=== PATIENT | female | born 1945 ===

== ENCOUNTER 2017-02-09 16:49 | Inpatient (IN) | payer MEDICARE, BC ==
[2017-02-09 17:01] VITALS: BMI 31.1
[2017-02-09] MEDS ORDERED: Sodium Chloride 0.9% 1,000 ML IV STA (17:18)
--- NOTE | 2017-02-09 17:24 | ED PDOC ---
Arrival/HPI - General Time Seen by Provider: 02/09/17 16:57 Historian: Patient - History of Present Illness Narrative History of Present Illness (Text): 02/09/17 17:09 A 72 year old female, whose past medical history includes cholecystectomy and brain tumor, presents to the emergency department complaining of intermittent chest pain since yesterday afternoon. Patient reports her pain last 10-15 minutes at a time and radiates to her abdomen. She states her pain is worse when taking deep breaths. Patient took Advil, with mild relief. She also reports intermittent left lower abdominal pain for the past month, which she is being seen for by her PMD. Patient notes decrease appetite but denies any fever , chills, nausea, vomiting, diarrhea, shortness of breath, cough, weakness, diaphoresis, rash or any other complaints. PMD: Dr. Carcamo Time/Duration: Other (Yesterday afternoon) Symptom Course: Unchanged, Intermittent Quality: Other Context: Home Past Medical History - Provider Review Nursing Documentation Reviewed: Yes - Infectious Disease Hx of Infectious Diseases: None - Cardiac Hx Cardiac Disorders: No - Pulmonary Hx Respiratory Disorders: No - Neurological Hx Neurological Disorder: Yes - HEENT Hx HEENT Disorder: No - Renal Hx Renal Disorder: No - Endocrine/Metabolic Hx Endocrine Disorders: No - Hematological/Oncological Hx Blood Disorders: No - Integumentary Hx Dermatological Disorder: No - Musculoskeletal/Rheumatological Hx Musculoskeletal Disorders: No Hx Falls: No - Gastrointestinal Hx Gastrointestinal Disorders: Yes Hx Gall Bladder Disease: Yes (gallbladder removal) Hx Gastroesophageal Reflux: Yes - Genitourinary/Gynecological Hx Genitourinary Disorders: No - Psychiatric Hx Psychophysiologic Disorder: No Hx Substance Use: No - Surgical History Hx Cholecystectomy: Yes Other/Comment: . brain tumor and removal. right breast cyst removal. left breast biopsy - Anesthesia Hx Anesthesia: Yes Hx Anesthesia Reactions: No Hx Malignant Hyperthermia: No Family/Social History - Physician Review Nursing Documentation Reviewed: Yes Family/Social History: No Known Family HX Smoking Status: Never Smoked Hx Alcohol Use: No Hx Substance Use: No Allergies/Home Meds Allergies/Adverse Reactions: Allergies Penicillins Allergy (Verified 08/07/16 12:48) RASH Home Medications: Home Meds Medication Instructions Recorded Confirmed Famotidine [Pepcid] 40 mg PO DAILY 06/25/16 02/09/17 Review of Systems - Physician Review All systems were reviewed & negative as marked: Yes - Review of Systems Constitutional: absent: Fevers, Night Sweats, Other (weakness) Respiratory: absent: SOB, Cough Cardiovascular: Chest Pain (Chest pain radiating to abdomen) Gastrointestinal: Appetite Changes. absent: Diarrhea, Nausea, Vomiting Skin: absent: Rash Endocrine: absent: Diaphoresis Physical Exam Vital Signs Reviewed: Yes Vital Signs Temp Pulse Resp BP Pulse Ox 02/09/17 19:39 70 16 138/80 96 02/09/17 16:59 98.6 F 80 19 147/76 95 Temperature: Afebrile Blood Pressure: Normal Pulse: Regular Respiratory Rate: Normal Appearance: Positive for: Well-Appearing, Non-Toxic, Comfortable Pain Distress: None Mental Status: Positive for: Alert and Oriented X 3 - Systems Exam Head: Present: Atraumatic, Normocephalic Pupils: Present: PERRL Conjunctiva: Present: Normal Mouth: Present: Moist Mucous Membranes Pharnyx: Present: Normal Neck: Present: Normal Range of Motion Respiratory/Chest: Present: Clear to Auscultation, Good Air Exchange. No: Respiratory Distress, Accessory Muscle Use Cardiovascular: Present: Regular Rate and Rhythm, Normal S1, S2. No: Murmurs Abdomen: Present: Tenderness (LUQ and LLQ tenderness to palpation), Normal Bowel Sounds. No: Distention, Peritoneal Signs Back: Present: Normal Inspection Upper Extremity: Present: Normal Inspection. No: Cyanosis, Edema Lower Extremity: Present: Normal Inspection. No: Edema Neurological: Present: GCS=15, CN II-XII Intact, Speech Normal Skin: Present: Warm, Dry, Normal Color. No: Rashes Psychiatric: Present: Alert, Oriented x 3, Normal Insight, Normal Concentration Medical Decision Making ED Course and Treatment: 02/09/17 17:09 Impression: A 72 year old female with intermittent chest pain radiating to abdomen. Patient notes a decrease in appetite. Differential Diagnosis included but are not limited to: ACS vs. Gastritis vs. Pancreatitis vs. Diverticulitis Plan: -- Abdomen and pelvis CT -- Chest xray -- Labs -- Urinalysis -- Protonix and IV fluids -- Reassess and disposition Progress Notes: Report Date: 02/09/17 20:55 EXAM: CT Abdomen and Pelvis With Intravenous Contrast Dictated and Authenticated by: Flip Funez MD IMPRESSION: No acute findings. 02/09/17 21:30 Labs are unremarkable and CT a/p with no acute findings. Given concerns for ACS , patient will need serial CE and observation on tele. Patient is Dr. Carcamo's and will be placed on the hospitalist's service. Case discussed with Dr. Henderson. - Lab Interpretations Lab Results: 02/09/17 18:00 02/09/17 18:30 Lab Results 02/09/17 18:30: Sodium 141, Potassium 3.9, Chloride 106, Carbon Dioxide 24, Anion Gap 15, BUN 13, Creatinine 0.6, Est GFR ( Amer) > 60, Est GFR (Non- Af Amer) > 60, Random Glucose 101, Calcium 9.1, Total Bilirubin 1.1, AST 53 H, ALT 59 H, Alkaline Phosphatase 74, Lactate Dehydrogenase 377, Total Creatine Kinase 81, Troponin I < 0.01, Total Protein 7.2, Albumin 3.9, Globulin 3.3, Albumin/Globulin Ratio 1.2, Amylase 47, Lipase 119 02/09/17 18:00: Urine Color Yellow, Urine Appearance Clear, Urine pH 6.0, Ur Specific [place] 1.020, Urine Protein Negative, Urine Glucose (UA) Negative, Urine Ketones Negative, Urine Blood Small H, Urine Nitrate Negative, Urine Bilirubin Negative, Urine Urobilinogen 0.2, Ur Leukocyte Esterase Negative, Urine RBC 1 - 3, Urine WBC 1 - 3, Ur Epithelial Cells 0 - 2 02/09/17 18:00: PT 10.4, INR 0.96, APTT 27.1 02/09/17 18:00: WBC 6.8 D, RBC 4.11, Hgb 12.4, Hct 36.2, MCV 88.1, MCH 30.2, MCHC 34.3, RDW 12.7, Plt Count 331, MPV 10.1, Gran % 66.5, Lymph % (Auto) 25.3, [place] % (Auto) 6.4 H, Eos % (Auto) 1.5, Baso % (Auto) 0.3, Gran # 4.50, Lymph # 1.7, [place] # 0.4, Eos # 0.1, Baso # 0.02 I have reviewed the lab results: Yes - RAD Interpretation Narrative RAD Interpretations (Text): 02/09/17 21:29 CXR: nad Radiology Orders: 02/09/17 17:17 CHEST PORTABLE [RAD] Stat 02/09/17 17:18 ABD & PELVIS IV CONTRAST ONLY [CT] Stat - EKG Interpretation EKG Interpretation (Text): 02/09/17 21:29 NSR @ 84; no ST/T changes; normal intervals, normal axis. Interpreted by ED Physician: Yes Type: 12 lead EKG - Medication Orders Current Medication Orders: Pantoprazole Sodium (Protonix Inj) 40 mg IVP DAILY JOLANTA Discontinued Medications Sodium Chloride (Sodium Chloride 0.9%) 1,000 mls @ 999 mls/hr IV .Q1H1M STA Stop: 02/09/17 18:18 Last Admin: 02/09/17 18:04 Dose: 999 mls/hr Iohexol (Omnipaque 350 100 Ml) Confirm Administered Dose 350 mg .ROUTE .STK-MED ONE Stop: 02/09/17 19:30 Pantoprazole Sodium (Protonix Inj) 40 mg IVP ONCE STA Stop: 02/09/17 17:19 Last Admin: 02/09/17 19:59 Dose: 40 mg Comments: Given on the previous shift - Scribe Statement The provider has reviewed the documentation as recorded by the Quinnibrobin Aguilera Provider Scribe Attestation: All medical record entries made by the Scribe were at my direction and personally dictated by me. I have reviewed the chart and agree that the record accurately reflects my personal performance of the history, physical exam, medical decision making, and the department course for this patient. I have also personally directed, reviewed, and agree with the discharge instructions and disposition. Disposition/Present on Arrival - Present on Arrival Any Indicators Present on Arrival: No History of DVT/PE: No History of Uncontrolled Diabetes: No Urinary Catheter: No History Surgical Site Infection Following: None - Disposition Have Diagnosis and Disposition been Completed?: Yes Diagnosis: Chest pain Disposition: HOSPITALIZED Disposition Time: 21:20 Patient Plan: Observation, Telemetry Condition: FAIR Discharge Instructions (ExitCare): Chest Pain (ED) Referrals: Thomas Carcamo MD [Primary Care Provider] - Follow up with primary
[2017-02-09 18:23] LABS: BASO # 0.02 K/mm3 (0.0-2.0); BASO % 0.3 % (0.0-3.0); EOS # 0.1 (0.0-0.7); EOS % 1.5 % (1.5-5.0); GRAN % 66.5 % (50.0-68.0); HEMOGLOBIN 12.4 gm/dL (12.0-16.0); LYMPH # 1.7 (1.2-3.4); LYMPH % 25.3 % (22.0-35.0); MEAN CELL VOLUME 88.1 fL (80.0-105.0); MEAN CORPUSCULAR HEMOGLOBIN 30.2 pg (25.0-35.0); MEAN CORPUSCULAR HGB CONC 34.3 g/dl (31.0-37.0); MEAN PLATELET VOLUME 10.1 fl (7.0-11.0); MONO # 0.4 (0.1-0.6); MONO % 6.4 % (1.0-6.0); PLATELET COUNT 331 10^3/uL (120.0-450.0); RBC 4.11 10^6/uL (3.5-6.1); RED CELL DISTRIBUTION WIDTH 12.7 % (11.5-14.5); WHITE BLOOD COUNT 6.8 10^3/ul (4.5-11.0)
[2017-02-09 18:30] LABS: URINE BILIRUBIN NEGATIVE (NEGATIVE); URINE BLOOD SMALL (NEGATIVE); URINE GLUCOSE (UA) NEGATIVE (NEGATIVE); URINE LEUKOCYTE ESTERASE NEGATIVE Leu/uL (NEGATIVE); URINE NITRATE NEGATIVE (NEGATIVE); URINE PROTEIN NEGATIVE mg/dL (<30 mg/dL); URINE UROBILINOGEN 0.2 E.U./dL (<1 E.U./dL)
[2017-02-09 18:31] LABS: URINE APPEARANCE CLEAR (CLEAR); URINE COLOR YELLOW (YELLOW)
[2017-02-09 18:35] LABS: INR 0.96 (0.93-1.08); PARTIAL THROMBOPLASTIN TIME 27.1 Seconds (23.7-30.8); PROTHROMBIN TIME 10.4 Seconds (9.9-11.8)
[2017-02-09 18:41] LABS: URINE EPITHELIAL CELLS 0 - 2 /hpf (0-5)
[2017-02-09 19:14] LABS: ALB/GLOB RATIO 1.2 (1.1-1.8); ALBUMIN 3.9 g/dL (3.0-4.8); ALT/SGPT 59 U/L (7-56); AMYLASE 47 U/L (35-125); AST/SGOT 53 U/L (15-39); BLOOD UREA NITROGEN 13 mg/dL (7-21); CALCIUM 9.1 mg/dL (8.4-10.5); GFR AFRICAN-AMERICAN > 60; GFR NON-AFRICAN AMERICAN > 60; LIPASE 119 U/L (23-300)
[2017-02-09 19:27] LABS: TROPONIN I < 0.01 ng/mL
[2017-02-09] MEDS ORDERED: Iohexol 350 MG/100 ML VIAL ONE (19:29)
[2017-02-09 22:02] LABS: HDL CHOLESTEROL 50 mg/dL (29-60)
[2017-02-09 22:13] LABS: LDL CHOLESTEROL 78 mg/dL (0-129)
--- NOTE | 2017-02-09 22:48 | CP.PCM.HP ---
<DAMON JAY - Last Filed: 02/09/17 22:52> History of Present Illness - History of Present Illness History of Present Illness: CC: Chest Pain HPI: Mrs. Coe is a 72 year old F with a past medical history significant for cholecystectomy, RA, carpal tunnel, and chostocondritis, presented to the ED complaining of substernal chest pain radiating to her LUE and epigastric region. She states that the pain began suddenly yesterday while having lunch with her mother and, after resting for 15 minutes, it went away on its own. Patient notes that she has had chostocondritis in the past but that this pain was different. She reports that the pain felt like a "punch" to her chest and that it has returned intermittently since yesterday. Advil and Tylenol have both helped with the pain. She reports no aggravating factors. In the ED, am EKG showed NSR and a troponin was also found to be negative. A CT abd/pelv showed findings consistent with constipation but no other acute findings. Currently, patient has no complaints and reports that her chest pain is resolved. She notes that the chest pain, along with the epigastric radiation pain she was experiencing, resolved after she "farted". She denies headache, changes in vision, fever, dysphagia, chest pain, palpitations, shortness of breath, cough, abdominal pain, N/V or diarrhea. PMH: Meningioma (1989), RA, Carpal Tunnel Syndrome (bilaterally), Chostocondritis, R breast cyst PSH: , Meningioma removal, R breast cystectomy, L breast biopsy, Cholecystectomy FH: Father-unknown arrythmia with PPM placement Social: Denies tobacco, alcohol, or illicit drug use Allergies: Penicillin Home meds: Famotidine PMD: Dr. Carcamo (Formerly Dr. Fay) Present on Admission - Present on Admission Any Indicators Present on Admission: No Review of Systems - Review of Systems Review of Systems: Please refer to HPI Past Patient History - Infectious Disease Hx of Infectious Diseases: None - Past Social History Smoking Status: Never Smoked - CARDIAC Hx Cardiac Disorders: No - PULMONARY Hx Respiratory Disorders: No - NEUROLOGICAL Hx Neurological Disorder: Yes - HEENT Hx HEENT Problems: No - RENAL Hx Chronic Kidney Disease: No - ENDOCRINE/METABOLIC Hx Endocrine Disorders: No - HEMATOLOGICAL/ONCOLOGICAL Hx Blood Disorders: No - INTEGUMENTARY Hx Dermatological Problems: No - MUSCULOSKELETAL/RHEUMATOLOGICAL Hx Musculoskeletal Disorders: No Hx Falls: No - GASTROINTESTINAL Hx Gastrointestinal Disorders: Yes Hx Gall Bladder Disease: Yes (gallbladder removal) Hx Gastroesophageal Reflux: Yes - GENITOURINARY/GYNECOLOGICAL Hx Genitourinary Disorders: No - PSYCHIATRIC Hx Psychophysiologic Disorder: No Hx Substance Use: No - SURGICAL HISTORY Hx Cholecystectomy: Yes Other/Comment: . brain tumor and removal. right breast cyst removal. left breast biopsy - ANESTHESIA Hx Anesthesia: Yes Hx Anesthesia Reactions: No Hx Malignant Hyperthermia: No Meds Allergies/Adverse Reactions: Allergies Allergy/AdvReac Type Severity Reaction Status Date / Time Penicillins Allergy RASH Verified 08/07/16 12:48 Physical Exam - Constitutional Appears: No Acute Distress - Head Exam Head Exam: NORMAL INSPECTION, NORMOCEPHALIC - Eye Exam Eye Exam: EOMI, Normal appearance. absent: Scleral icterus - ENT Exam ENT Exam: Mucous Membranes Moist, Normal Exam, Normal External Ear Exam, Normal Oropharynx - Neck Exam Neck exam: Positive for: Full Rom. Negative for: Lymphadenopathy - Respiratory Exam Respiratory Exam: Clear to Auscultation Bilateral, NORMAL BREATHING PATTERN. absent: Rales, Rhonchi, Wheezes, Respiratory Distress - Cardiovascular Exam Cardiovascular Exam: REGULAR RHYTHM, RRR, +S1, +S2. absent: Tachycardia, Systolic Murmur - GI/Abdominal Exam GI & Abdominal Exam: Normal Bowel Sounds, Soft. absent: Distended, Firm, Tenderness - Extremities Exam Extremities exam: Positive for: normal capillary refill, pedal pulses present. Negative for: calf tenderness, pedal edema - Neurological Exam Neurological exam: Alert, Oriented x3 - Psychiatric Exam Psychiatric exam: Normal Affect, Normal Mood - Skin Skin Exam: Dry, Intact, Normal Color, Warm Results - Vital Signs Recent Vital Signs: Last Vital Signs Temp 98.6 F 02/09/17 16:59 Pulse 70 02/09/17 19:39 Resp 16 02/09/17 19:39 BP 138/80 02/09/17 19:39 Pulse Ox 96 02/09/17 19:39 - Labs Result Diagrams: 02/09/17 18:00 02/09/17 18:30 Assessment & Plan - Assessment and Plan (Free Text) Assessment: 72 year old F with a past medical history significant for cholecystectomy, RA, carpal tunnel, and chostocondritis, presented to the ED complaining of substernal chest pain radiating to her LUE and epigastric region. Plan: 1. Chest Pain -likely musculoskeletal etiology, ACS r/o, stable angina -no history of HTN, DM, HLD or family history of early onset NC's. -cardiology consulted, all recs appreciated -start ASA 81mg daily -troponin x1 negative at 1830, serial troponins pending (0030, 0630) -TSH, A1C, Lipid panel pending -repeat EKG at 0700 02/10 -Heart Healthy diet -Vital signs Q8 -telemetry monitoring 2. Elevated LFT's -AST/ALT/AP: 53/59/74 -Etiology considerations: acetaminophen induced injury, hepatitis, biliary obstruction, alcohol induced injury -GI consulted, all recs appreciated -Acetaminophen, Hepatitis Panel pending -Amylase, Lipase WNL -no history of alcohol use per patient 3. Constipation -findings consistent with constipation on CT abd/pelv -Colace PRN 4. History of Arthritis -Motrin PRN 5. GI/DVT Prophylaxis -protonix/scd's Patient seen and case discussed with attending, Dr. Henderson. - Date & Time Date: 02/09/17 Time: 10:50 Decision To Admit - Pt Status Changed To: Hospital Disposition Of: Observation - . Bed Request Type: Telemetry <Marcelo Henderson - Last Filed: 02/09/17 23:19> Results - Vital Signs Recent Vital Signs: Last Vital Signs Temp 98.6 F 02/09/17 16:59 Pulse 67 02/09/17 22:50 Resp 16 02/09/17 22:50 BP 139/79 02/09/17 22:50 Pulse Ox 94 L 02/09/17 22:50 - Labs Result Diagrams: 02/09/17 18:00 02/09/17 18:30 Attending/Attestation - Attestation I have personally seen and examined this patient.: Yes I have fully participated in the care of the patient.: Yes I have reviewed all pertinent clinical information: Yes Notes (Text): 02/09/17 23:19 Patient was seen with director medical surgical when she was in bed # 1 in the ER. Agree with history , physical examination , assessment and plan.
[2017-02-10 07:02] LABS: BASO # 0.01 K/mm3 (0.0-2.0); BASO % 0.2 % (0.0-3.0); EOS # 0.2 (0.0-0.7); EOS % 3.6 % (1.5-5.0); GRAN # 2.66 (1.4-6.5); GRAN % 50.8 % (50.0-68.0); HEMOGLOBIN 12.2 gm/dL (12.0-16.0); LYMPH % 37.2 % (22.0-35.0); MEAN CELL VOLUME 87.4 fL (80.0-105.0); MEAN CORPUSCULAR HEMOGLOBIN 29.5 pg (25.0-35.0); MEAN CORPUSCULAR HGB CONC 33.8 g/dl (31.0-37.0); MEAN PLATELET VOLUME 9.4 fl (7.0-11.0); MONO # 0.4 (0.1-0.6); MONO % 8.2 % (1.0-6.0); PLATELET COUNT 281 10^3/uL (120.0-450.0); RBC 4.13 10^6/uL (3.5-6.1); RED CELL DISTRIBUTION WIDTH 12.3 % (11.5-14.5); WHITE BLOOD COUNT 5.2 10^3/ul (4.5-11.0)
--- NOTE | 2017-02-10 07:09 | RAD ---
Chest x-ray single frontal view History: Chest pain. Comparison: 08/07/2016 Findings: Mild venous congestion with patchy increased markings at the bilateral lung bases ; left greater than right with associated questionable trace left pleural effusion. Biapical pleural thickening. Right hilar prominence. Tortuous ectatic aorta. Calcification at the aortic knob. Degenerative changes in the spine and shoulders. Impression: Mild venous congestion with patchy increased markings at the bilateral lung bases ; left greater than right with associated questionable trace left pleural effusion. Biapical pleural thickening. Right hilar prominence.
[2017-02-10 07:16] LABS: ALB/GLOB RATIO 1.2 (1.1-1.8); ALBUMIN 4.1 g/dL (3.0-4.8); ALT/SGPT 55 U/L (7-56); AST/SGOT 47 U/L (15-39); BLOOD UREA NITROGEN 13 mg/dL (7-21); CALCIUM 9.4 mg/dL (8.4-10.5); GFR AFRICAN-AMERICAN > 60; GFR NON-AFRICAN AMERICAN > 60
[2017-02-10 07:25] LABS: TROPONIN I < 0.01 ng/mL
[2017-02-10] MEDS ORDERED: Potassium Chloride 40 mEq/30 ml LIQ UD PO ONE (07:59)
[2017-02-10 08:46] LABS: FREE T4 1.18 ng/dL (0.78-2.19)
[2017-02-10] MEDS ORDERED: POLYETHYLENE GLYCOL 3350 17 GM/Dose PACKET PO ONE (09:12)
[2017-02-10 09:25] LABS: BILIRUBIN,DIRECT 0.3 mg/dL (0.0-0.4)
--- NOTE | 2017-02-10 10:23 | CT ---
PROCEDURE: CT Abdomen and Pelvis with contrast HISTORY: LLQ abd pain COMPARISON: 08/07/2016 TECHNIQUE: Contrast dose: 100 mL Omnipaque 350 Radiation dose: Total exam DLP = 324 mGy-cm. This CT exam was performed using one or more of the following dose reduction techniques: Automated exposure control, adjustment of the mA and/or kV according to patient size, and/or use of iterative reconstruction technique. FINDINGS: LOWER THORAX: Left lung base linear opacity- consistent with scar similar-appearing LIVER: Hepatic steatosis. No gross lesion or ductal dilatation. GALLBLADDER AND BILE DUCTS: Status postcholecystectomy. Extra hepatic bile duct dilatation unchanged. Measuring up to 1.1 cm -given patient's age and post cholecystectomy status probably top-normal . PANCREAS: Unremarkable. No gross lesion or ductal dilatation. SPLEEN: Unremarkable. ADRENALS: Unremarkable. No mass. KIDNEYS AND URETERS: Bilateral renal cysts -the largest exophytic off the right upper renal pole measuring 1.8 cm -similar. No hydronephrosis. No solid mass. VASCULATURE: Unremarkable. No aortic aneurysm. BOWEL: Rectosigmoid redundancy. Moderate stool retention right colon No obstruction. No gross mural thickening. No diverticulosis or gross diverticulitis. A knuckle of transverse colon is protruding through midline rectus abdominis diastases -as before APPENDIX: Normal appendix. PERITONEUM: Unremarkable. No free fluid. No free air. LYMPH NODES: Unremarkable. No enlarged lymph nodes. BLADDER: Moderate bladder distention. The anterior superior gas droplets are similar in appearance. Clinical correlation is essential regarding any prior [place] catheter insertion or other bladder intervention. No gross fistulous tracts. No gross contiguous diverticulosis noted. The bladder does displace the uterus towards the left side. The uterus, rectosigmoid loop and lateral seen on the same axial image. No significant appear bladder wall thickening. No gross intraluminal mass. REPRODUCTIVE: Uterus shifted towards the left. Between it and the bladder is a loop of rectosigmoid colon. BONES: L4-5 disc space narrowing with anterior spondylosis. Prominent posterior disc margin. No fracture or lytic lesion OTHER FINDINGS: None. IMPRESSION: No diverticulitis or bowel obstruction. No free air. There is similar intraluminal gas droplets in the bladder as above. Clinical correlation is needed regarding prior [place] catheter insertional other bladder intervention. This finding was noted on the prior 08/07/2016 study. No contiguous fistulous tract appreciated.
--- NOTE | 2017-02-10 10:26 | CP.PCM.CON ---
History of Present Illness - History of Present Illness History of Present Illness: Seen and examined at bedside this am, chart reviewed, request for consult is for elevated liver enzymes, h/o cholecytectomy. HPI: This is a 72 year old female with a PMH of cholecytectomy 1991, Chostocondritis, GERD, carpel tunnel came to the hospital with complaints of sudden onset of chest pain: epigastric that radiated to left upper quaderant. She felt as if she was punched in the chest. She has history of chostocondritis and reprots tht the pain was different. She get acid reflux usually depend on her dietary intake but does take Pepcid every night but did not take for the past 4 days,she reports that she "forgets" at times. May take Advil or tylenol for muscle pain but on rare occasion. SHe did have ct scan A&P with IV contrast and it showed mild dilation biliary duct which could be consistent w/ cholecystectomy and constipation. On admission she was also noted to have elevated Liver enzymes, mainly total bilirubin and AST. She denies N/V or abdominal pain. She denies change in bowel habits, bleeding per rectum, weight loss, anorexia or dysphagia. She never had EGD, last colon was more than 5 years ago, does not recall any colon polyps or other significant findings, this was done in [place]. She recently moved to [place]. PMH: GERD, Meningioma, carpel tunnel syndrome, chostocondritis, right breast cyst, RA PSH: , removal of meningioma, right breast cystectomy, cholecystectomy , FHX: father : cardiac disease, has PPM placement ALlergies: PCN Social HX: denies tobacco, etoh, drugs MEDS: reviewed as per SEP ROS: systems reviewed with positive findings, see hpi Past Patient History - Infectious Disease Hx of Infectious Diseases: None - Past Social History Smoking Status: Never Smoked - CARDIAC Hx Cardiac Disorders: No - PULMONARY Hx Respiratory Disorders: No - NEUROLOGICAL Hx Neurological Disorder: Yes - HEENT Hx HEENT Problems: Yes (admits use of glasses for reading) - RENAL Hx Chronic Kidney Disease: No - ENDOCRINE/METABOLIC Hx Hyperthyroidism: Yes (iodine treatment) - HEMATOLOGICAL/ONCOLOGICAL Hx Cancer: Yes (Brain) - INTEGUMENTARY Hx Dermatological Problems: No - MUSCULOSKELETAL/RHEUMATOLOGICAL Hx Musculoskeletal Disorders: Yes (tendonitis) Hx Arthritis: Yes (RA) Hx Falls: No - GASTROINTESTINAL Hx Gastroesophageal Reflux: Yes - GENITOURINARY/GYNECOLOGICAL Hx Genitourinary Disorders: No - PSYCHIATRIC Hx Psychophysiologic Disorder: No Hx Substance Use: No - SURGICAL HISTORY Hx Cholecystectomy: Yes - ANESTHESIA Hx Anesthesia: Yes Hx Anesthesia Reactions: No Hx Malignant Hyperthermia: No Meds Allergies/Adverse Reactions: Allergies Allergy/AdvReac Type Severity Reaction Status Date / Time Penicillins Allergy RASH Verified 08/07/16 12:48 - Medications Medications: Current Medications Aspirin (Aspirin Chewable) 81 mg PO DAILY [facility] Last Admin: 02/10/17 09:05 Dose: 81 mg Docusate Sodium (Colace) 100 mg PO Q12 PRN PRN Reason: Constipation Last Admin: 02/10/17 09:05 Dose: 100 mg Ibuprofen (Motrin Tab) 600 mg PO Q6H PRN PRN Reason: Pain, moderate (4-7) Pantoprazole Sodium (Protonix Inj) 40 mg IVP DAILY [facility] Last Admin: 02/10/17 09:05 Dose: 40 mg Physical Exam - Constitutional Appears: No Acute Distress - Head Exam Head Exam: NORMAL INSPECTION - Eye Exam Eye Exam: Normal appearance. absent: Scleral icterus - ENT Exam ENT Exam: Mucous Membranes Moist - Neck Exam Neck exam: Positive for: Normal Inspection - Respiratory Exam Respiratory Exam: Clear to Auscultation Bilateral, NORMAL BREATHING PATTERN. absent: Respiratory Distress - Cardiovascular Exam Cardiovascular Exam: +S1, +S2 - GI/Abdominal Exam GI & Abdominal Exam: Normal Bowel Sounds, Soft. absent: Distended, Guarding, Organomegaly, Rebound, Tenderness - Extremities Exam Extremities exam: Positive for: pedal pulses present. Negative for: calf tenderness, pedal edema - Neurological Exam Neurological exam: Alert, Oriented x3 - Skin Skin Exam: Dry, Warm Results - Vital Signs Recent Vital Signs: Last Vital Signs Temp 98 F 02/10/17 06:00 Pulse 67 02/10/17 06:00 Resp 18 02/10/17 06:00 BP 105/55 L 02/10/17 06:00 Pulse Ox 97 02/10/17 06:00 - Labs Result Diagrams: 02/10/17 05:50 02/10/17 06:30 Labs: Laboratory Results - last 24 hr 02/10/17 02/10/17 02/10/17 00:35 05:50 06:30 WBC 5.2 D RBC 4.13 Hgb 12.2 Hct 36.1 MCV 87.4 MCH 29.5 MCHC 33.8 RDW 12.3 Plt Count 281 MPV 9.4 Gran % 50.8 Lymph % (Auto) 37.2 H [place] % (Auto) 8.2 H Eos % (Auto) 3.6 Baso % (Auto) 0.2 Gran # 2.66 Lymph # 2.0 [place] # 0.4 Eos # 0.2 Baso # 0.01 Retic Count Sodium Potassium Chloride Carbon Dioxide Anion Gap BUN Creatinine Est GFR ( Amer) Est GFR (Non-Af Amer) Random Glucose Calcium Total Bilirubin Direct Bilirubin AST ALT Alkaline Phosphatase Lactate Dehydrogenase Troponin I < 0.01 Total Protein Albumin Globulin Albumin/Globulin Ratio Free T4 TSH 3rd Generation Acetaminophen < 10.0 L 02/10/17 02/10/17 02/10/17 06:30 06:30 06:30 WBC RBC Hgb Hct MCV MCH MCHC RDW Plt Count MPV Gran % Lymph % (Auto) [place] % (Auto) Eos % (Auto) Baso % (Auto) Gran # Lymph # [place] # Eos # Baso # Retic Count 0.75 Sodium 142 Potassium 3.5 L Chloride 103 Carbon Dioxide 27 Anion Gap 16 BUN 13 Creatinine 0.6 Est GFR ( Amer) > 60 Est GFR (Non-Af Amer) > 60 Random Glucose 93 Calcium 9.4 Total Bilirubin 1.5 H Direct Bilirubin 0.3 AST 47 H ALT 55 Alkaline Phosphatase 73 Lactate Dehydrogenase 399 Troponin I < 0.01 Total Protein 7.6 Albumin 4.1 Globulin 3.5 Albumin/Globulin Ratio 1.2 Free T4 TSH 3rd Generation Acetaminophen 02/10/17 07:39 WBC RBC Hgb Hct MCV MCH MCHC RDW Plt Count MPV Gran % Lymph % (Auto) [place] % (Auto) Eos % (Auto) Baso % (Auto) Gran # Lymph # [place] # Eos # Baso # Retic Count Sodium Potassium Chloride Carbon Dioxide Anion Gap BUN Creatinine Est GFR ( Amer) Est GFR (Non-Af Amer) Random Glucose Calcium Total Bilirubin Direct Bilirubin AST ALT Alkaline Phosphatase Lactate Dehydrogenase Troponin I Total Protein Albumin Globulin Albumin/Globulin Ratio Free T4 1.18 TSH 3rd Generation 0.04 L Acetaminophen Assessment & Plan - Assessment and Plan (Free Text) Assessment: ASSESSMENT: Atypical chest pain Elevated LFT, r/o infectious, biliary cause, hemolysis H/O Cholecystectomy Constipation H/O Chostocondritis RA PLAN: check direct bilirubin, LDH, retic count FU hepatitis panel trend LFT give a dose of Miralax cardiac evaluation may benefit from EGD,can be done electively as outpatient, also colon, pt was due in 2013 but cancelled, last colon more that 5 years ago. discussed w/ patient. recommend MRCP w/without contrast, patient reluctant, wants to discuss with her , detail discussion done with the patient. continue PPI Thank you for this consult and for allowing us to participate in your patient care, will make further recommendation based upon clinical course. Seen and discussed w/ Dr. Quach.
[2017-02-10 12:07] LABS: HEPATITIS B SURFACE AG NEGATIVE (NEGATIVE)
[2017-02-10 12:12] LABS: HEPATITIS A IGM NEGATIVE (NEGATIVE)
[2017-02-10 12:13] LABS: HEPATITIS B CORE AB NEGATIVE (NEGATIVE)
[2017-02-10 12:25] LABS: HEPATITIS C ANTIBODY NEGATIVE (NEGATIVE)
--- NOTE | 2017-02-10 15:50 | CP.PCM.PN ---
<Jessica Frye - Last Filed: 02/10/17 16:14> Subjective - Date & Time of Evaluation Date of Evaluation: 02/10/17 Time of Evaluation: 07:30 - Subjective Subjective: Patient seen and examined at bedside. Per nursing, no acute events overnight. Reports chest pain has improved. Patient is ambulating and tolerating diet. Denies any complaints at this time. Patient reports that she follows with a acid bleacher in [place]. Per the patient, last echo and stress test was performed approx [id number] and were normal. Denies headaches, dizziness, changes in vision , SOB, CP, palpitations, abdominal pain, urinary symptoms, changes in bowel habits, hair/skin changes, recent with weight loss. Objective - Vital Signs/Intake and Output Vital Signs (last 24 hours): Temp Pulse Resp BP Pulse Ox 98.2 F 62 20 142/78 97 02/10/17 12:00 02/10/17 12:00 02/10/17 12:00 02/10/17 12:00 02/10/17 06:00 Intake and Output: 02/10/17 02/10/17 06:59 18:59 Intake Total 240 540 Output Total 0 Balance 240 540 - Medications Medications: Current Medications Aspirin (Aspirin Chewable) 81 mg PO DAILY [facility] Last Admin: 02/10/17 09:05 Dose: 81 mg Docusate Sodium (Colace) 100 mg PO Q12 PRN PRN Reason: Constipation Last Admin: 02/10/17 09:05 Dose: 100 mg Ibuprofen (Motrin Tab) 600 mg PO Q6H PRN PRN Reason: Pain, moderate (4-7) Pantoprazole Sodium (Protonix Inj) 40 mg IVP DAILY [facility] Last Admin: 02/10/17 09:05 Dose: 40 mg - Labs Labs: 02/10/17 05:50 02/10/17 06:30 PT 10.4 Seconds (9.9-11.8) 02/09/17 18:00 INR 0.96 (0.93-1.08) 02/09/17 18:00 APTT 27.1 Seconds (23.7-30.8) 02/09/17 18:00 - Constitutional Appears: Well, No Acute Distress - Head Exam Head Exam: ATRAUMATIC, NORMAL INSPECTION - Eye Exam Eye Exam: EOMI, Normal appearance - ENT Exam ENT Exam: Mucous Membranes Moist - Neck Exam Neck Exam: Full ROM - Respiratory Exam Respiratory Exam: Clear to Ausculation Bilateral. absent: Rales, Rhonchi, Wheezes - Cardiovascular Exam Cardiovascular Exam: REGULAR RHYTHM, +S1, +S2 - GI/Abdominal Exam GI & Abdominal Exam: Soft, Normal Bowel Sounds. absent: Guarding, Rigid, Tenderness - Extremities Exam Extremities Exam: Full ROM, Normal Capillary Refill, Normal Inspection - Back Exam Back Exam: NORMAL INSPECTION - Neurological Exam Neurological Exam: Alert, Awake, Oriented x3 - Psychiatric Exam Psychiatric exam: Normal Affect, Normal Mood - Skin Skin Exam: Normal Color, Warm Assessment and Plan - Assessment and Plan (Free Text) Assessment: 72 yo F with pmhx of Meningioma s/p tumor resection, Carpal tunnel syndrome, Costochondritis, R breast cyst presents with intermittent chest pain Plan: 1. Chest pain, r/o ACS - Stable, afebrile - Continue ASA - Monitor on tele - Cardiology consulted, f/u recommendations - Troponins neg x 3 - CT Abd/Pelvis showed no acute findings 2. Elevated LFTs, improving - No acute findings seen on CT - Patient denied Tylenol use at home - GI on consult, f/u recommendations - MRCP ordered by GI, however patient hesistant, wants to discuss with - Hepatitis panel wnl - Continue to trend LFTs - Avoid hepatotoxic agents 3. Hypokalemia - K+ 3.5 today - Repleted with KCL po soln - F/U am labs 4. Subclinical Hyperthyroidism - TSH on admission 0.3, repeat TSH 0.4, T4 wnl - TSH on 06/2016 noted to be 2.57 - No signs/symptoms of hyperthyroidism - Will continue to monitor 4. GI/DVT ppx - Protonix - SCDs Plan d/w attending Jessica Frye PGY-1 <Mackenzie Stewart - Last Filed: 02/10/17 16:47> Objective - Vital Signs/Intake and Output Vital Signs (last 24 hours): Temp Pulse Resp BP Pulse Ox 98.2 F 62 20 142/78 97 02/10/17 12:00 02/10/17 12:00 02/10/17 12:00 02/10/17 12:00 02/10/17 06:00 Intake and Output: 02/10/17 02/10/17 06:59 18:59 Intake Total 240 540 Output Total 0 Balance 240 540 - Medications Medications: Current Medications Aspirin (Aspirin Chewable) 81 mg PO DAILY [facility] Last Admin: 02/10/17 09:05 Dose: 81 mg Docusate Sodium (Colace) 100 mg PO Q12 PRN PRN Reason: Constipation Last Admin: 02/10/17 09:05 Dose: 100 mg Ibuprofen (Motrin Tab) 600 mg PO Q6H PRN PRN Reason: Pain, moderate (4-7) Pantoprazole Sodium (Protonix Inj) 40 mg IVP DAILY [facility] Last Admin: 02/10/17 09:05 Dose: 40 mg - Labs Labs: 02/10/17 05:50 02/10/17 06:30 PT 10.4 Seconds (9.9-11.8) 02/09/17 18:00 INR 0.96 (0.93-1.08) 02/09/17 18:00 APTT 27.1 Seconds (23.7-30.8) 02/09/17 18:00 Attending/Attestation - Attestation I have personally seen and examined this patient.: Yes I have fully participated in the care of the patient.: Yes I have reviewed all pertinent clinical information, including history, physical exam and plan: Yes Notes (Text): 02/10/17 16:43 72 year old female with past medical history of meningioma s/p resection who presented with complaint of chest pain and abdominal pain. Serial cardiac enzymes have been negative. She is pending cardiology evaluation. She reports she had seen a acid bleacher 1-2 years with a negative echo/stress test at that time. Will follow up with cardiology recommendations. She also had mildly elevated LFTs. GI is following and ordered for MRCP. Will follow up with GI recommendations. TSH is low with normal free T4. Recommended to repeat TFTs in 4-6 weeks. Will replete and repeat potassium. Mackenzie Stewart MD Hospitalist.
--- NOTE | 2017-02-10 16:03 | CARD ---
APPROVED REPORT EKG Measurement Heart [id number] <Conclusion> Sinus bradycardia RSR' or QR pattern in V1 suggests right ventricular conduction delay NSSTW changes
[2017-02-10] MEDS ORDERED: Gadodiamide 287 MG/ML VIAL (15ML) IV ONE (16:28)
--- NOTE | 2017-02-10 20:36 | MRI ---
EXAM: MR Abdomen Without and With Intravenous Contrast CLINICAL HISTORY: The patient age is 72 years old and is female; Signs and symptoms; Other: Elevated lfts - R/O cbd stone; Patient HX: Elevated lfts - R/O cbd stone. ; Additional info: Elevated lft r/oc cbd stone Facility exam id and description: Mri mrcpabd mrcp and abd w/wo contrast TECHNIQUE: Multiplanar magnetic resonance images of the abdomen without and with intravenous contrast. CONTRAST: 15 mL of Omniscan administered intravenously. EXAM DATE/TIME: 02/10/2017 12:24 PM COMPARISON: CT - ABD PELVIS IV CONTRAST ONLY 02/09/2017 8:05:08 PM FINDINGS: Lower thorax: Evaluation of the lung bases is limited on MRI. There is scoliosis of the lower thoracic and lumbar spine. Liver: Several small T2 hyperintense hepatic lesions are visualized, which are too small to characterize further. Gallbladder and bile ducts: There is biliary dilatation. The common bile duct measures 1.4 cm in diameter. No well-defined filling defect is identified within the common bile duct to suggest a common bile duct stone. The common bile duct tapers distally. Ampullary stenosis cannot be excluded. The gallbladder is absent. There is no pathological enhancement within the common bile duct. Pancreas: There is mild atrophy of the pancreas. There is no significant pancreatic duct dilatation. Spleen: No splenomegaly. Adrenals: No mass. Kidneys and ureters: T2 hyperintense renal cysts are visualized bilaterally. Exophytic to the upper pole of the right kidney, this measures 1.9 x 1.7 x 2.2 cm. no hydronephrosis bilaterally. Stomach and bowel: There is mild distention of the antrum of the stomach. Intraperitoneal space: No significant fluid collection. Soft tissues: There is eventration of the ventral abdominal wall. Vasculature: No abdominal aortic aneurysm. Lymph nodes: No significant retroperitoneal lymphadenopathy. IMPRESSION: 1. There is biliary dilatation. No well-defined filling defect is identified within the common bile duct to suggest a common bile duct stone. Ampullary stenosis cannot be excluded. 2. The gallbladder is absent. 3. Renal cysts are visualized bilaterally. 4. Additional findings described above.
--- NOTE | 2017-02-11 01:04 | CON ---
CARDIOLOGY CONSULTATION REASON FOR CONSULTATION: Chest pain. HISTORY OF PRESENT ILLNESS: The patient is a 72-year-old [place] female who has a history of cholecystectomy and brain tumor who is admitted because of epigastric as well as chest pain. The patient is unaware of any history of heart attack in the past. 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 SOCIAL HISTORY: Nonsmoker and nondrinker. MEDICATIONS: Aspirin 81 mg once a day, Colace 100 mg once a day, Motrin 600 mg q. 6 hours, Protonix 40 mg intravenous once a day. REVIEW OF SYSTEMS: No fever or chills. No vomiting or diarrhea. No dizziness or syncope. PHYSICAL EXAMINATION GENERAL: The patient is an elderly female who does not appear to be in acute distress. VITAL SIGNS: Blood pressure 135/72, heart rate 62, temperature 97.5, respirations 20. HEENT: Atraumatic. NECK: No JVD. CHEST: Clear. HEART: S1 and S2 regular. ABDOMEN: Soft. EXTREMITIES: No edema. LABORATORY DATA: On admission, sodium 142, potassium 3.5, chloride 103, CO2 of 27, glucose 93, BUN 13, creatinine 0.6. TSH level is 0.03. Amylase and lipase are within normal limits. Lipid profile is within normal limits. Three sets of troponin are within normal limits. Hemoglobin and hematocrit 12.2 and 36.1. White count and platelet counts are within normal limits. PT/PTT are within normal limits. Hepatitis profile is within normal limits. EKG revealed normal sinus rhythm with RSR pattern in V1. Abdomen and pelvic CT scan, no diverticulitis or bowel obstruction. No free air. MRCP was performed, but the report is still pending. Head CT scan performed in July of this year revealed no evidence of acute intracranial hemorrhage, mass effect or midline shift. An earlier CT scan in 06/2016 revealed the same which concurred the history of brain mass. ASSESSMENT: 1. Atypical chest pain, myocardial infarction ruled out. 2. Epigastric pain. 3. Hypothyroidism. RECOMMENDATIONS: Continue current aspirin 81 mg once a day. Obtain an echocardiogram. I will follow MRCP report and discussed the case with the fireworks assembly supervisor. Supplement potassium orally. Jorge Garduno MD
[2017-02-11 05:21] VITALS: O2SAT 95
[2017-02-11 05:37] LABS: BASO # 0.03 K/mm3 (0.0-2.0); BASO % 0.6 % (0.0-3.0); EOS # 0.2 (0.0-0.7); EOS % 3.5 % (1.5-5.0); GRAN # 3.02 (1.4-6.5); GRAN % 57.9 % (50.0-68.0); HEMOGLOBIN 12.9 gm/dL (12.0-16.0); LYMPH # 1.7 (1.2-3.4); LYMPH % 31.9 % (22.0-35.0); MEAN CELL VOLUME 87.5 fL (80.0-105.0); MEAN CORPUSCULAR HEMOGLOBIN 29.9 pg (25.0-35.0); MEAN CORPUSCULAR HGB CONC 34.2 g/dl (31.0-37.0); MEAN PLATELET VOLUME 9.4 fl (7.0-11.0); MONO # 0.3 (0.1-0.6); MONO % 6.1 % (1.0-6.0); PLATELET COUNT 264 10^3/uL (120.0-450.0); RBC 4.31 10^6/uL (3.5-6.1); RED CELL DISTRIBUTION WIDTH 12.3 % (11.5-14.5); WHITE BLOOD COUNT 5.2 10^3/ul (4.5-11.0)
[2017-02-11 06:18] LABS: ALB/GLOB RATIO 1.2 (1.1-1.8); ALBUMIN 4.2 g/dL (3.0-4.8); ALT/SGPT 52 U/L (7-56); AST/SGOT 29 U/L (15-39); BLOOD UREA NITROGEN 19 mg/dL (7-21); CALCIUM 9.7 mg/dL (8.4-10.5); GFR AFRICAN-AMERICAN > 60; GFR NON-AFRICAN AMERICAN > 60
--- NOTE | 2017-02-11 09:37 | CARD ---
APPROVED REPORT EKG Measurement Heart [id number] <Conclusion> Normal sinus rhythm RSR' or QR pattern in V1 suggests right ventricular conduction delay Leftward axis No change
--- NOTE | 2017-02-11 10:42 | CP.PCM.PN ---
Subjective - Date & Time of Evaluation Date of Evaluation: 02/11/17 Time of Evaluation: 08:50 - Subjective Subjective: S&E at bedside, eating breakfast, no N/V or chest pain/epigastric pain. She had good BM yesterday and no bleeding. Feel better. No new complaints. went for MRCP yesterday and reveal biliary dilation 1.4 cm CBD but no filling defect, ? ampullary stenosis, and mild pancreas atrophy. Objective - Vital Signs/Intake and Output Vital Signs (last 24 hours): Temp Pulse Resp BP Pulse Ox 98 F 60 20 130/78 95 02/11/17 05:21 02/11/17 05:21 02/11/17 05:21 02/11/17 05:21 02/11/17 05:21 Intake and Output: 02/11/17 02/11/17 06:59 18:59 Intake Total 240 Balance 240 - Medications Medications: Current Medications Aspirin (Aspirin Chewable) 81 mg PO DAILY [facility] Last Admin: 02/11/17 10:24 Dose: 81 mg Docusate Sodium (Colace) 100 mg PO Q12 PRN PRN Reason: Constipation Last Admin: 02/10/17 09:05 Dose: 100 mg Ibuprofen (Motrin Tab) 600 mg PO Q6H PRN PRN Reason: Pain, moderate (4-7) Pantoprazole Sodium (Protonix Inj) 40 mg IVP DAILY [facility] Last Admin: 02/11/17 10:24 Dose: 40 mg - Labs Labs: 02/11/17 04:30 02/11/17 05:10 PT 10.4 Seconds (9.9-11.8) 02/09/17 18:00 INR 0.96 (0.93-1.08) 02/09/17 18:00 APTT 27.1 Seconds (23.7-30.8) 02/09/17 18:00 - Constitutional Appears: No Acute Distress - Head Exam Head Exam: NORMAL INSPECTION - Eye Exam Eye Exam: Normal appearance. absent: Scleral icterus - ENT Exam ENT Exam: Mucous Membranes Moist - Respiratory Exam Respiratory Exam: Clear to Ausculation Bilateral, NORMAL BREATHING PATTERN. absent: Respiratory Distress - Cardiovascular Exam Cardiovascular Exam: +S1, +S2 - GI/Abdominal Exam GI & Abdominal Exam: Soft, Normal Bowel Sounds. absent: Guarding, Tenderness, Organomegaly, Rebound - Extremities Exam Extremities Exam: Normal Capillary Refill. absent: Calf Tenderness, Pedal Edema - Neurological Exam Neurological Exam: Alert, Awake, Oriented x3 - Skin Skin Exam: Dry, Warm Assessment and Plan - Assessment and Plan (Free Text) Assessment: ASSESSMENT: Atypical chest pain Resolved Elevated LFT, direct bilirubin, retic ct , LDH, hep panel normal, maybe hemolysis, LFT now normalized. s/p MRCP, ? ampullary stenosis/pancreatic atropy, CBD 1.4 cm, no filling defect or stone. H/O Cholecystectomy Constipation H/O Chostocondritis RA PLAN: for echo this am continue diet as tolerated elective EGD/EUS/colon outpatient, discuss w/ patient. continue PPI, colace on Aspirin Seen and discussed w/ Dr. Vega.
[2017-02-11 11:37] VITALS: BP 115/75; RESP 16; TEMP 97.3
[2017-02-11 13:58] VITALS: PULSE 86
--- NOTE | 2017-02-11 14:43 | CP.PCM.DIS ---
<Jessica Frye - Last Filed: 02/11/17 17:55> Provider - Provider Date of Admission: 02/10/17 16:03 Attending physician: Mackenzie Stewart MD Primary care physician: Thomas Carcamo MD Consults: GI: Dr Veag Cardiology: Shaan Time Spent in preparation of Discharge (in minutes): 31 Diagnosis - Discharge Diagnosis (1) Chest pain Status: Acute Hospital Course - Lab Results Lab Results: Most Recent Lab Values WBC 5.2 10^3/ul (4.5-11.0) 02/11/17 04:30 RBC 4.31 10^6/uL (3.5-6.1) 02/11/17 04:30 Hgb 12.9 gm/dL (12.0-16.0) 02/11/17 04:30 Hct 37.7 % (36.0-48.0) 02/11/17 04:30 MCV 87.5 fL (80.0-105.0) 02/11/17 04:30 MCH 29.9 pg (25.0-35.0) 02/11/17 04:30 MCHC 34.2 g/dl (31.0-37.0) 02/11/17 04:30 RDW 12.3 % (11.5-14.5) 02/11/17 04:30 Plt Count 264 10^3/uL (120.0-450.0) 02/11/17 04:30 MPV 9.4 fl (7.0-11.0) 02/11/17 04:30 Gran % 57.9 % (50.0-68.0) 02/11/17 04:30 Lymph % (Auto) 31.9 % (22.0-35.0) 02/11/17 04:30 [place] % (Auto) 6.1 % (1.0-6.0) H 02/11/17 04:30 Eos % (Auto) 3.5 % (1.5-5.0) 02/11/17 04:30 Baso % (Auto) 0.6 % (0.0-3.0) 02/11/17 04:30 Gran # 3.02 (1.4-6.5) 02/11/17 04:30 Lymph # 1.7 (1.2-3.4) 02/11/17 04:30 [place] # 0.3 (0.1-0.6) 02/11/17 04:30 Eos # 0.2 (0.0-0.7) 02/11/17 04:30 Baso # 0.03 K/mm3 (0.0-2.0) 02/11/17 04:30 Retic Count 0.75 % (0.5-1.5) 02/10/17 06:30 PT 10.4 Seconds (9.9-11.8) 02/09/17 18:00 INR 0.96 (0.93-1.08) 02/09/17 18:00 APTT 27.1 Seconds (23.7-30.8) 02/09/17 18:00 Sodium 141 mmol/L (132-148) 02/11/17 05:10 Potassium 3.9 mmol/L (3.6-5.0) 02/11/17 05:10 Chloride 104 mmol/L (95-110) 02/11/17 05:10 Carbon Dioxide 24 mmol/L (21-33) 02/11/17 05:10 Anion Gap 17 (10-20) 02/11/17 05:10 BUN 19 mg/dL (7-21) 02/11/17 05:10 Creatinine 0.5 mg/dL (0.5-1.4) 02/11/17 05:10 Est GFR ( Amer) > 60 02/11/17 05:10 Est GFR (Non-Af Amer) > 60 02/11/17 05:10 Random Glucose 107 mg/dL (70-110) 02/11/17 05:10 Hemoglobin A1c 5.4 % (4.2-6.5) 02/09/17 21:00 Calcium 9.7 mg/dL (8.4-10.5) 02/11/17 05:10 Total Bilirubin 0.9 mg/dL (0.2-1.3) 02/11/17 05:10 Direct Bilirubin 0.3 mg/dL (0.0-0.4) 02/10/17 06:30 AST 29 U/L (15-39) 02/11/17 05:10 ALT 52 U/L (7-56) 02/11/17 05:10 Alkaline Phosphatase 75 U/L (38-133) 02/11/17 05:10 Lactate Dehydrogenase 399 U/L (333-699) 02/10/17 06:30 Total Creatine Kinase 81 U/L (35-230) 02/09/17 18:30 Troponin I < 0.01 ng/mL 02/10/17 06:30 Total Protein 7.7 g/dL (5.8-8.3) 02/11/17 05:10 Albumin 4.2 g/dL (3.0-4.8) 02/11/17 05:10 Globulin 3.4 gm/dL 02/11/17 05:10 Albumin/Globulin Ratio 1.2 (1.1-1.8) 02/11/17 05:10 Triglycerides 90 mg/dL (35-160) 02/09/17 21:00 Cholesterol 161 mg/dL (130-200) 02/09/17 21:00 LDL Cholesterol Direct 78 mg/dL (0-129) 02/09/17 21:00 HDL Cholesterol 50 mg/dL (29-60) 02/09/17 21:00 Amylase 47 U/L (35-125) 02/09/17 18:30 Lipase 119 U/L (23-300) 02/09/17 18:30 Free T4 1.18 ng/dL (0.78-2.19) 02/10/17 07:39 TSH 3rd Generation 0.04 mIU/mL (0.46-4.68) L 02/10/17 07:39 Urine Color Yellow (YELLOW) 02/09/17 18:00 Urine Appearance Clear (CLEAR) 02/09/17 18:00 Urine pH 6.0 (4.7-8.0) 02/09/17 18:00 Ur Specific [place] 1.020 (1.005-1.035) 02/09/17 18:00 Urine Protein Negative mg/dL (<30 mg/dL) 02/09/17 18:00 Urine Glucose (UA) Negative mg/dL (NEGATIVE) 02/09/17 18:00 Urine Ketones Negative mg/dL (NEGATIVE) 02/09/17 18:00 Urine Blood Small (NEGATIVE) H 02/09/17 18:00 Urine Nitrate Negative (NEGATIVE) 02/09/17 18:00 Urine Bilirubin Negative (NEGATIVE) 02/09/17 18:00 Urine Urobilinogen 0.2 E.U./dL (<1 E.U./dL) 02/09/17 18:00 Ur Leukocyte Esterase Negative Maddy/uL (NEGATIVE) 02/09/17 18:00 Urine RBC 1 - 3 /hpf (0-2) 02/09/17 18:00 Urine WBC 1 - 3 /hpf (0-6) 02/09/17 18:00 Ur Epithelial Cells 0 - 2 /hpf (0-5) 02/09/17 18:00 Acetaminophen < 10.0 ug/ml (10.0-20.0) L 02/10/17 06:30 Hepatitis A IgM Ab Negative (NEGATIVE) 02/10/17 06:30 Hep Bs Antigen Negative (NEGATIVE) 02/10/17 06:30 Hep B Core IgM Ab Negative (NEGATIVE) 02/10/17 06:30 Hepatitis C Antibody Negative (NEGATIVE) 02/10/17 06:30 - Hospital Course Hospital Course: Patient is a 72 year old F with a past medical history significant for meningioma s/p tumor resection, R breast cyst, cholecystectomy, RA, carpal tunnel, and chostocondritis, presented to the ED complaining of substernal chest pain radiating to the epigastric region. She states that the pain began suddenly yesterday while having lunch with her mother and, after resting for 15 minutes, it went away on its own. Patient notes that she has had costocondritis in the past but that this pain was different. She reports that the pain felt like a "punch" to her chest and that it has returned intermittently since yesterday. Advil and Tylenol have both helped with the pain. She reports no aggravating factors. In the ED, am EKG showed NSR and a troponin was also found to be negative. A CT abd/pelv showed findings consistent with constipation but no other acute findings. Patient follows with a roll tension tester in [facility] and reports that her last echo and stress test in 2014 was normal. Patient was admitted for chest pain, r/o ACS. Patient was monitored on telemetry , started on ASA. Cardiology was consulted and on the case. Troponins were negative x 3, with no EKG changes. Lipid panel was WNL. Echo was performed, and reviewed by roll tension tester. Patient reported that her symptoms have improved. Myocardial infarction was ruled out. During this admission, Patient was found to have mildly elevated LFTs, with an elevated T bili. GI was consulted and on the case. Hep panel was negative. MRCP was done and showed biliary duct dilation of 1.4cm, no filling defect, possible ampullary stenosis, and mild pancreas atrophy. T bili and LFTs were trended and normalized. Patient was also hypokalemic during her stay, potassium was repleted. During the admission TSH was noted to be 0.3, repeat TSH was 0.4 and free T4 was WNL. On previous admission 06/2016, TSH was noted to be 2.5. Patient denied any symptoms of hyperthyroidism, instructed to follow up with PMD for further evaluation. Patient was medically stable upon discharge. Patient is to follow up with roll tension tester, who is located in [place] within the week and was instructed to have a stress test done as an outpatient. Patient also instructed to follow up with PMD within 1 week. Patient to follow up outpatient for scheduled EGD with EUS and colonoscopy with GI. Prescription for protonix was given. All questions and concerns were addressed. Discharge Exam - Head Exam Head Exam: NORMAL INSPECTION - Eye Exam Eye Exam: EOMI, Normal appearance Pupil Exam: NORMAL ACCOMODATION, PERRL - ENT Exam ENT Exam: Mucous Membranes Moist - Neck Exam Neck exam: Full Rom - Respiratory Exam Respiratory Exam: Clear to PA & Lateral, NORMAL BREATHING PATTERN. absent: Rales, Rhonchi, Wheezes - Cardiovascular Exam Cardiovascular Exam: REGULAR RHYTHM, +S1, +S2. absent: Systolic Murmur - GI/Abdominal Exam GI & Abdominal Exam: Normal Bowel Sounds, Soft. absent: Distended, Guarding, Rigid, Tenderness - Extremities Exam Extremities exam: full ROM, normal inspection, pedal pulses present - Back Exam Back exam: NORMAL INSPECTION - Neurological Exam Neurological exam: Alert, CN II-XII Intact, Oriented x3 - Psychiatric Exam Psychiatric exam: Normal Affect, Normal Mood - Skin Skin Exam: Normal Color, Warm Discharge Plan - Discharge Medications Prescriptions: Pantoprazole Sodium [Protonix] 40 mg PO DAILY #30 ect - Follow Up Plan Condition: FAIR Disposition: HOME/ ROUTINE Instructions: Chest Pain (ED), Chest Pain (DC), Chest Pain (GEN) Additional Instructions: Patient is cleared for discharge home, Patient to follow up with roll tension tester and PMD within 1 week, patient to continue Protonix 40mg PO daily, Patient will be scheduled for EGD with US as an outpatient Referrals: Thomas Carcamo MD [Primary Care Provider] - <Mackenzie Stewart - Last Filed: 02/12/17 13:44> Provider - Provider Date of Admission: 02/10/17 16:03 Attending physician: Mackenzie Stewart MD Primary care physician: Thomas Carcamo MD Hospital Course - Lab Results Lab Results: Most Recent Lab Values WBC 5.2 10^3/ul (4.5-11.0) 02/11/17 04:30 RBC 4.31 10^6/uL (3.5-6.1) 02/11/17 04:30 Hgb 12.9 gm/dL (12.0-16.0) 02/11/17 04:30 Hct 37.7 % (36.0-48.0) 02/11/17 04:30 MCV 87.5 fL (80.0-105.0) 02/11/17 04:30 MCH 29.9 pg (25.0-35.0) 02/11/17 04:30 MCHC 34.2 g/dl (31.0-37.0) 02/11/17 04:30 RDW 12.3 % (11.5-14.5) 02/11/17 04:30 Plt Count 264 10^3/uL (120.0-450.0) 02/11/17 04:30 MPV 9.4 fl (7.0-11.0) 02/11/17 04:30 Gran % 57.9 % (50.0-68.0) 02/11/17 04:30 Lymph % (Auto) 31.9 % (22.0-35.0) 02/11/17 04:30 [place] % (Auto) 6.1 % (1.0-6.0) H 02/11/17 04:30 Eos % (Auto) 3.5 % (1.5-5.0) 02/11/17 04:30 Baso % (Auto) 0.6 % (0.0-3.0) 02/11/17 04:30 Gran # 3.02 (1.4-6.5) 02/11/17 04:30 Lymph # 1.7 (1.2-3.4) 02/11/17 04:30 [place] # 0.3 (0.1-0.6) 02/11/17 04:30 Eos # 0.2 (0.0-0.7) 02/11/17 04:30 Baso # 0.03 K/mm3 (0.0-2.0) 02/11/17 04:30 Retic Count 0.75 % (0.5-1.5) 02/10/17 06:30 PT 10.4 Seconds (9.9-11.8) 02/09/17 18:00 INR 0.96 (0.93-1.08) 02/09/17 18:00 APTT 27.1 Seconds (23.7-30.8) 02/09/17 18:00 Sodium 141 mmol/L (132-148) 02/11/17 05:10 Potassium 3.9 mmol/L (3.6-5.0) 02/11/17 05:10 Chloride 104 mmol/L (95-110) 02/11/17 05:10 Carbon Dioxide 24 mmol/L (21-33) 02/11/17 05:10 Anion Gap 17 (10-20) 02/11/17 05:10 BUN 19 mg/dL (7-21) 02/11/17 05:10 Creatinine 0.5 mg/dL (0.5-1.4) 02/11/17 05:10 Est GFR ( Amer) > 60 02/11/17 05:10 Est GFR (Non-Af Amer) > 60 02/11/17 05:10 Random Glucose 107 mg/dL (70-110) 02/11/17 05:10 Hemoglobin A1c 5.4 % (4.2-6.5) 02/09/17 21:00 Calcium 9.7 mg/dL (8.4-10.5) 02/11/17 05:10 Total Bilirubin 0.9 mg/dL (0.2-1.3) 02/11/17 05:10 Direct Bilirubin 0.3 mg/dL (0.0-0.4) 02/10/17 06:30 AST 29 U/L (15-39) 02/11/17 05:10 ALT 52 U/L (7-56) 02/11/17 05:10 Alkaline Phosphatase 75 U/L (38-133) 02/11/17 05:10 Lactate Dehydrogenase 399 U/L (333-699) 02/10/17 06:30 Total Creatine Kinase 81 U/L (35-230) 02/09/17 18:30 Troponin I < 0.01 ng/mL 02/10/17 06:30 Total Protein 7.7 g/dL (5.8-8.3) 02/11/17 05:10 Albumin 4.2 g/dL (3.0-4.8) 02/11/17 05:10 Globulin 3.4 gm/dL 02/11/17 05:10 Albumin/Globulin Ratio 1.2 (1.1-1.8) 02/11/17 05:10 Triglycerides 90 mg/dL (35-160) 02/09/17 21:00 Cholesterol 161 mg/dL (130-200) 02/09/17 21:00 LDL Cholesterol Direct 78 mg/dL (0-129) 02/09/17 21:00 HDL Cholesterol 50 mg/dL (29-60) 02/09/17 21:00 Amylase 47 U/L (35-125) 02/09/17 18:30 Lipase 119 U/L (23-300) 02/09/17 18:30 Free T4 1.18 ng/dL (0.78-2.19) 02/10/17 07:39 TSH 3rd Generation 0.04 mIU/mL (0.46-4.68) L 02/10/17 07:39 Urine Color Yellow (YELLOW) 02/09/17 18:00 Urine Appearance Clear (CLEAR) 02/09/17 18:00 Urine pH 6.0 (4.7-8.0) 02/09/17 18:00 Ur Specific [place] 1.020 (1.005-1.035) 02/09/17 18:00 Urine Protein Negative mg/dL (<30 mg/dL) 02/09/17 18:00 Urine Glucose (UA) Negative mg/dL (NEGATIVE) 02/09/17 18:00 Urine Ketones Negative mg/dL (NEGATIVE) 02/09/17 18:00 Urine Blood Small (NEGATIVE) H 02/09/17 18:00 Urine Nitrate Negative (NEGATIVE) 02/09/17 18:00 Urine Bilirubin Negative (NEGATIVE) 02/09/17 18:00 Urine Urobilinogen 0.2 E.U./dL (<1 E.U./dL) 02/09/17 18:00 Ur Leukocyte Esterase Negative Maddy/uL (NEGATIVE) 02/09/17 18:00 Urine RBC 1 - 3 /hpf (0-2) 02/09/17 18:00 Urine WBC 1 - 3 /hpf (0-6) 02/09/17 18:00 Ur Epithelial Cells 0 - 2 /hpf (0-5) 02/09/17 18:00 Acetaminophen < 10.0 ug/ml (10.0-20.0) L 02/10/17 06:30 Hepatitis A IgM Ab Negative (NEGATIVE) 02/10/17 06:30 Hep Bs Antigen Negative (NEGATIVE) 02/10/17 06:30 Hep B Core IgM Ab Negative (NEGATIVE) 02/10/17 06:30 Hepatitis C Antibody Negative (NEGATIVE) 02/10/17 06:30 Attending/Attestation - Attestation I have personally seen and examined this patient.: Yes I have fully participated in the care of the patient.: Yes I have reviewed all pertinent clinical information, including history, physical exam and plan: Yes Notes (Text): 02/12/17 13:42 72 year old female with past medical history of meningioma s/p resection who presented with complaint of chest pain and abdominal pain. Serial cardiac enzymes have been negative. Echocardiogram was reviewed as above. She was seen by cardiology who recommended outpatient follow up. She also had mildly elevated LFTs which improved. MRCP was reviewed as above. She was seen by GI who recommended outpatient EGD/EUS. She had a low TSH with normal free T4. Recommended to repeat TFTs in 4-6 weeks. She is discharged home to follow up with her pmd. Follow up with roll tension tester and GI. Mackenzie Stewart MD Hospitalist.
--- NOTE | 2017-02-11 15:31 | PN ---
SUBJECTIVE: The patient denies any chest pain or abdominal pain, no reported arrhythmia. PHYSICAL EXAMINATION: VITAL SIGNS: Blood pressure 115/75, heart rate 62, temperature 97.3, respirations 16. HEENT: Normocephalic. CHEST: Clear. HEART: S1 and S2 regular. ABDOMEN: Soft. EXTREMITIES: No edema. LABORATORIES: Hemoglobin and hematocrit 12.9 and 37.7, white count and platelet count are within normal limit. is entirely within normal limit today. I did review the echocardiographic study which revealed normal ejection fraction, trace anterior pericardial effusion and borderline pulmonary hypertension. MRCP report is consistent with no well-defined filling defect that I can find within the common bile duct to suggest a stone. Ampullary stenosis cannot be excluded. ASSESSMENT: 1. Chest pain, myocardial infraction is ruled out. 2. Abdominal pain with dilatation of the common bile duct. 3. History of cerebellar meningioma. The patient had a surgery for it in 1989. CONDITIONS: Continue current aspirin and IV Protonix. No further cardiac workup at this time. The patient is scheduled to see our armored service technician in [place] within days and was recommended to undergo repeat stress test as an outpatient. Jorge Garduno MD
--- NOTE | 2017-02-11 21:22 | CARD ---
APPROVED REPORT EXAM: Two-dimensional and M-mode echocardiogram with Doppler and color Doppler. INDICATION Chest Pain 2D DIMENSIONS Left Atrium (2D)3.0 (1.6-4.0cm)IVSd1.0 (0.7-1.1cm) LVDd4.5 (3.9-5.9cm)PWd1.2 (0.7-1.1cm) LVDs2.7 (2.5-4.0cm)FS (%) 39.8 % LVEF (%)70.5 (>50%) M-Mode DIMENSIONS Aortic Root2.20 (2.2-3.7cm)Aortic Cusp Exc.1.80 (1.5-2.0cm) Aortic Valve AoV Peak Gfgwabht174.0cm/Frank Peak GR.10mmHg Mitral Valve MV E Jlpffclr30.4cm/sMV A Vajyalwt93.3cm/sE/A ratio0.9 TDI E/Lateral E'0.0E/Medial E'0.0 Tricuspid Valve TR Peak [id number]/sRAP [id number] Peak Gr.24mmHg [id number] LEFT VENTRICLE The left ventricle is normal size. There is normal left ventricular wall thickness. The left ventricular function is normal. The left ventricular ejection fraction is within the normal range. There is normal LV segmental wall motion. Transmitral Doppler flow pattern is Grade I-abnormal relaxation pattern. RIGHT VENTRICLE The right ventricle is normal size. There is normal right ventricular wall thickness. The right ventricular systolic function is normal. ATRIA The left atrium size is normal. The right atrium size is normal. AORTIC VALVE The aortic valve is mildly sclerotic. No aortic regurgitation is present. There is no aortic valvular stenosis. MITRAL VALVE The mitral valve is mildly thickened. There is no mitral valve regurgitation noted. TRICUSPID VALVE There is mild tricuspid regurgitation. There is mild pulmonary hypertension. GREAT VESSELS The aortic root is normal in size. PERICARDIAL EFFUSION There is a trace loculated anterior pericardial effusion. <Conclusion> The left ventricle is normal size. There is normal left ventricular wall thickness. The left ventricular function is normal. The left ventricular ejection fraction is within the normal range. There is normal LV segmental wall motion. Transmitral Doppler flow pattern is Grade I-abnormal relaxation pattern. There is mild tricuspid regurgitation. There is mild pulmonary hypertension.
== END 2017-02-11 16:50 | disposition home or self-care (01) | DRG 313 ==
LOC: ED 16:49 → ERH 21:21 → 2RNO 23:39 → OBSVTOIN 02-10 16:03
PROVIDERS: ADMIT Internal Medicine; ATTEND Internal Medicine
DX: R07.89 Other chest pain (principal); E87.6 Hypokalemia; G56.03 Carpal tunnel syndrome, bilateral upper limbs; K59.00 Constipation, unspecified; K21.9 Gastro-esophageal reflux disease without esophagitis; M94.0 Chondrocostal junction syndrome [Tietze]; N60.01 Solitary cyst of right breast; R79.89 Other specified abnormal findings of blood chemistry; Z86.011 Personal history of benign neoplasm of the brain; Z90.49 Acquired absence of other specified parts of digestive tract

== ENCOUNTER 2017-04-12 14:21 | Emergency (ER) | payer MEDICARE, BC ==
[2017-04-12 14:39] VITALS: BMI 24.2
[2017-04-12 14:44] VITALS: BP 134/83; PULSE 58; RESP 18; TEMP 97.9
--- NOTE | 2017-04-12 16:08 | ED PDOC ---
Arrival/HPI - General Chief Complaint: Finger,Hand,&Wrist Time Seen by Provider: 04/12/17 15:14 Historian: Patient - History of Present Illness Narrative History of Present Illness (Text): 04/12/17 16:07 72-year-old female presents today with a 2 day history of right wrist pain and swelling. Patient denies any trauma or injury. Patient states she has had problems with the wrist in the past. Patient states about a year ago she had steroid injections into the wrist. Patient states over the past 2 days the pain in the wrist has returned and she's noticed slight swelling to the wrist. Patient states she hasn't taken any medications for pain at home. Patient states she has scheduled appointment with her orthopedist for next Wednesday (8 days from now). Patient denies fevers or chills. Patient denies numbness weakness or tingling in the extremity. Patient states she was visiting a family member in the hospital so she decided to come to the ER. Time/Duration: Other (2 days) Symptom Onset: Gradual Symptom Course: Worsening Quality: Aching Severity Level: 3 Past Medical History - Provider Review Nursing Documentation Reviewed: Yes - Travel History Have you recently traveled outside [place] w/in the past 3 mons?: No - Infectious Disease Hx of Infectious Diseases: None - Tetanus Immunization Tetanus Immunization: Unknown - Cardiac Hx Cardiac Disorders: No - Pulmonary Hx Respiratory Disorders: No - Neurological Hx Neurological Disorder: Yes Other/Comment: benign brain tumor - HEENT Hx HEENT Disorder: Yes (admits use of glasses for reading) - Renal Hx Renal Disorder: No - Endocrine/Metabolic Hx Hyperthyroidism: Yes (iodine treatment) - Hematological/Oncological Hx Cancer: Yes (Brain) - Integumentary Hx Dermatological Disorder: No - Musculoskeletal/Rheumatological Hx Musculoskeletal Disorders: Yes (tendonitis) Hx Arthritis: Yes (RA) Hx Falls: No Other/Comment: carpal tunnel - Gastrointestinal Hx Gastroesophageal Reflux: Yes - Genitourinary/Gynecological Other/Comment: R breast tumor - benign - Psychiatric Hx Psychophysiologic Disorder: No Hx Substance Use: No - Surgical History Hx Section: Yes (x1) Hx Cholecystectomy: Yes Other/Comment: L breast biopsy. R breast clip - Anesthesia Hx Anesthesia: Yes Hx Anesthesia Reactions: No Hx Malignant Hyperthermia: No Family/Social History - Physician Review Nursing Documentation Reviewed: Yes Family/Social History: Unknown Family HX Smoking Status: Never Smoked Hx Alcohol Use: No Hx Substance Use: No Allergies/Home Meds Allergies/Adverse Reactions: Allergies Penicillins Allergy (Verified 08/07/16 12:48) RASH Review of Systems - Review of Systems Constitutional: absent: Fatigue, Fevers Respiratory: absent: SOB, Cough Cardiovascular: absent: Chest Pain, Palpitations Gastrointestinal: absent: Abdominal Pain, Diarrhea, Nausea, Vomiting Genitourinary Female: absent: Dysuria Musculoskeletal: Arthralgias (right wrist pain) Skin: absent: Rash, Pruritis Neurological: absent: Headache, Dizziness Psychiatric: absent: Anxiety, Depression Physical Exam Vital Signs Reviewed: Yes Vital Signs Temp Pulse Resp BP Pulse Ox 04/12/17 14:44 97.9 F 58 L 18 134/83 96 Temperature: Afebrile Blood Pressure: Normal Pulse: Regular Respiratory Rate: Normal Appearance: Positive for: Well-Appearing, Non-Toxic, Comfortable Pain Distress: None Mental Status: Positive for: Alert and Oriented X 3 - Systems Exam Head: Present: Atraumatic Neck: Present: Normal Range of Motion Respiratory/Chest: Present: Clear to Auscultation, Good Air Exchange. No: Respiratory Distress, Accessory Muscle Use Cardiovascular: Present: Regular Rate and Rhythm, Normal S1, S2. No: Murmurs Upper Extremity: Present: Normal ROM, NORMAL PULSES, Tenderness (right wrist; there is minimal swelling noted to the dorsal aspect of the wrist with minimal tenderness. full rom of wrist; sensation and distal pulsesintact; no erythema; no ecchymosis; cap refill <2. ), Swelling, Neurovascularly Intact, Capillary Refill < 2s. No: Erythema, Deformity Neurological: Present: GCS=15, Speech Normal Skin: Present: Warm, Dry, Normal Color. No: Rashes Psychiatric: Present: Alert, Oriented x 3 Medical Decision Making ED Course and Treatment: 04/12/17 16:06 Patient nontoxic well-appearing in no distress with stable vital signs X-rays of the right wrist; no fracture tylenol for pain. Patient placed in velcro volar splint. I discussed all results with patient advised to followup with the orthopedist for the next 2 days. Return if symptoms worsen persist or new symptoms develop pt states she has f/u appointment with orthopedist in 8 days. Impression: wrist pain tylenol every 4 hours as needed for pain rest, ice, elevation Use splint. follow up with the orthopedist within the next 2 days follow up with the primary care physician within the next 2 days return immediately if symptoms worsen,persist or if new symptoms develop develop ; high fevers, increasing pain, increasing swelling, redness or if any other concerning symptoms develop. - RAD Interpretation Radiology Orders: 04/12/17 15:14 WRIST, RIGHT 3 VIEWS [RAD] Stat - Medication Orders Current Medication Orders: Discontinued Medications Acetaminophen (Tylenol 325mg Tab) 650 mg PO STAT STA Stop: 04/12/17 15:15 Disposition/Present on Arrival - Present on Arrival Any Indicators Present on Arrival: No History of DVT/PE: No History of Uncontrolled Diabetes: No Urinary Catheter: No History of Decub. Ulcer: No History Surgical Site Infection Following: None - Disposition Have Diagnosis and Disposition been Completed?: Yes Diagnosis: Wrist pain Disposition: HOME/ ROUTINE Disposition Time: 15:50 Patient Plan: Discharge Patient Problems: Current Active Problems Problem Status Onset Wrist pain Acute Condition: GOOD Discharge Instructions (ExitCare): Arthralgia (ED) Additional Instructions: tylenol every 4 hours as needed for pain rest, ice, elevation Use splint. follow up with the orthopedist within the next 2 days follow up with the primary care physician within the next 2 days return immediately if symptoms worsen,persist or if new symptoms develop develop ; high fevers, increasing pain, increasing swelling, redness or if any other concerning symptoms develop. Referrals: Tonia Vo MD [Staff Provider] - Follow up with primary William Urena MD [Staff Provider] - Follow up with primary Forms: [employer] ([place])
[2017-04-12 16:40] VITALS: O2SAT 99
--- NOTE | 2017-04-12 17:01 | RAD ---
PROCEDURE: Right Wrist Radiographs. HISTORY: wrist injury COMPARISON: None. FINDINGS: BONES: No acute fracture dislocation. Diffuse osteopenia suggests osteoporosis. JOINTS: Degenerative cortical sclerosis appreciate throughout the joints of the right wrist more so distally than proximally. SOFT TISSUES: Normal. OTHER FINDINGS: None. IMPRESSION: Degenerate joint changes are diffuse but appear [id number] severity. No acute fracture or dislocation identified including the navicular bone.
== END 2017-04-12 16:40 | disposition home or self-care (01) ==
LOC: ED 14:21
DX: M25.531 Pain in right wrist (principal)

== ENCOUNTER 2017-06-07 23:21 | Emergency (ER) | payer MEDICARE, BC ==
[2017-06-07 23:22] VITALS: BMI 24.2
[2017-06-07 23:50] VITALS: RESP 18
--- NOTE | 2017-06-08 00:13 | ED PDOC ---
Arrival/HPI - General Chief Complaint: Headache Time Seen by Provider: 06/08/17 00:01 Historian: Patient - History of Present Illness Narrative History of Present Illness (Text): 06/08/17 00:12 Cat Coe is a 72 year old female, whose past medical history includes meningioma and rheumatoid arthritis, who presents to the Emergency department complaining of headache. Patient states she began experiencing a posterior headache yesterday afternoon while walking home. Patient also reports a facial rash after eating chicken teriyaki earlier this evening. Patient states denies any dizziness, vision changes, focal neurological deficits, weakness/numbness, fever, chills, chest pain, shortness of breath, nausea, vomiting, neck pain, or any other complaints. Time/Duration: Other (tonight) Symptom Onset: Gradual Symptom Course: Unchanged Activities at Onset: Light, Eating Past Medical History - Provider Review Nursing Documentation Reviewed: Yes - Infectious Disease Hx of Infectious Diseases: None - Tetanus Immunization Tetanus Immunization: Unknown - Cardiac Hx Cardiac Disorders: No - Pulmonary Hx Respiratory Disorders: No - Neurological Hx Neurological Disorder: Yes Other/Comment: benign brain tumor - HEENT Hx HEENT Disorder: Yes (admits use of glasses for reading) - Renal Hx Renal Disorder: No - Endocrine/Metabolic Hx Hyperthyroidism: Yes (iodine treatment) - Hematological/Oncological Hx Cancer: Yes (Brain) - Integumentary Hx Dermatological Disorder: No - Musculoskeletal/Rheumatological Hx Musculoskeletal Disorders: Yes (tendonitis) Hx Arthritis: Yes (RA) Hx Falls: No Other/Comment: carpal tunnel - Gastrointestinal Hx Gastroesophageal Reflux: Yes - Genitourinary/Gynecological Other/Comment: R breast tumor - benign - Psychiatric Hx Psychophysiologic Disorder: No Hx Substance Use: No - Surgical History Hx Section: Yes (x1) Hx Cholecystectomy: Yes Other/Comment: L breast biopsy. R breast clip - Anesthesia Hx Anesthesia: Yes Hx Anesthesia Reactions: No Hx Malignant Hyperthermia: No Family/Social History - Physician Review Nursing Documentation Reviewed: Yes Family/Social History: Unknown Family HX Smoking Status: Never Smoked Hx Alcohol Use: No Hx Substance Use: No Allergies/Home Meds Allergies/Adverse Reactions: Allergies Penicillins Allergy (Verified 06/07/17 23:47) RASH Review of Systems - Physician Review All systems were reviewed & negative as marked: Yes - Review of Systems Constitutional: Normal. absent: Fevers Eyes: Normal ENT: Normal Respiratory: Normal. absent: SOB, Cough Cardiovascular: Normal. absent: Chest Pain Gastrointestinal: Normal. absent: Abdominal Pain, Diarrhea, Nausea, Vomiting Genitourinary Female: Normal. absent: Dysuria, Frequency, Hematuria, Urine Output Changes Musculoskeletal: Normal. absent: Back Pain, Neck Pain Skin: Rash Neurological: Headache. absent: Dizziness Endocrine: Normal Hemo/Lymphatic: Normal Psychiatric: Normal Physical Exam Vital Signs Reviewed: Yes Vital Signs Temp Pulse Resp BP Pulse Ox 06/08/17 02:57 97.7 F 51 L 18 109/70 99 06/07/17 23:48 97.9 F 67 18 159/81 H 97 Temperature: Afebrile Blood Pressure: Hypertensive Pulse: Regular Respiratory Rate: Normal Appearance: Positive for: Well-Appearing, Non-Toxic, Comfortable Pain Distress: None Mental Status: Positive for: Alert and Oriented X 3 - Systems Exam Head: Present: Atraumatic, Normocephalic Pupils: Present: PERRL Extroacular Muscles: Present: EOMI Conjunctiva: Present: Normal Mouth: Present: Moist Mucous Membranes Neck: Present: Normal Range of Motion. No: Meningeal Signs, MIDLINE TENDERNESS , Paraspinal Tenderness Respiratory/Chest: Present: Clear to Auscultation, Good Air Exchange. No: Respiratory Distress, Accessory Muscle Use Cardiovascular: Present: Regular Rate and Rhythm, Normal S1, S2. No: Murmurs Abdomen: Present: Normal Bowel Sounds. No: Tenderness, Distention, Peritoneal Signs Back: Present: Normal Inspection Upper Extremity: Present: Normal Inspection. No: Cyanosis, Edema Lower Extremity: Present: Normal Inspection. No: Edema Neurological: Present: GCS=15, CN II-XII Intact, Speech Normal, Motor Func Grossly Intact, Normal Sensory Function, Normal Cerebellar Funct, Memory Normal Skin: Present: Warm, Dry, Rashes (mild erythematous flush to forehead), Normal Color Psychiatric: Present: Alert, Oriented x 3, Normal Insight, Normal Concentration Medical Decision Making ED Course and Treatment: 06/08/17 00:12 Impression: 72 year old female complaining of headache and facial rash tonight. Plan: -- CT Head w/o contrast -- EKG -- Reassess and disposition Prior Visits: Notes and results from previous visits were reviewed. On 04/12/2017, pt was seen in the Emergency department for right wrist swelling. Pt was d/c home. Progress Notes: 06/08/17 01:26 reviewed radiology, CT Head shows: Brain: No acute intracranial hemorrhage. Age-appropriate periventricular white matter disease. No edema. Ventricles: Age-appropriate ventriculomegaly. Bones: No acute displaced fracture. Right occipital post craniotomy change. Sinuses: Unremarkable as visualized. No acute sinusitis. Mastoid air cells: Unremarkable as visualized. No mastoid effusion. IMPRESSION: Stable CT examination of the brain, when compared with previous study performed 08/07/2016, without acute intracranial hemorrhage, or suspicious mass effect. 06/08/17 02:55 On re-evaluation, patient feels better and is in no acute distress. I have discussed the results and plan with the patient, who expresses understanding. Patient in agreement with plan to be discharged home. Patient is stable for discharge. Patient was instructed to follow up with physician or return if symptoms worsen or new concerning symptoms arise. - RAD Interpretation Radiology Orders: 06/08/17 00:07 HEAD W/O CONTRAST [CT] Stat Can Tender: Radiologist - Medication Orders Current Medication Orders: Discontinued Medications Diphenhydramine HCl (Benadryl) 25 mg PO ONCE STA Stop: 06/08/17 02:56 Last Admin: 06/08/17 03:06 Dose: 25 mg - Scribe Statement The provider has reviewed the documentation as recorded by the Vj Pryor Provider Scribe Attestation: All medical record entries made by the Scribe were at my direction and personally dictated by me. I have reviewed the chart and agree that the record accurately reflects my personal performance of the history, physical exam, medical decision making, and the department course for this patient. I have also personally directed, reviewed, and agree with the discharge instructions and disposition. Disposition/Present on Arrival - Present on Arrival Any Indicators Present on Arrival: No History of DVT/PE: No History of Uncontrolled Diabetes: No Urinary Catheter: No History of Decub. Ulcer: No History Surgical Site Infection Following: None - Disposition Have Diagnosis and Disposition been Completed?: Yes Diagnosis: Headache, Allergic reaction Disposition: HOME/ ROUTINE Disposition Time: 02:54 Patient Plan: Discharge Condition: GOOD Discharge Instructions (ExitCare): Food Allergy (ED), Acute Headache (ED), Allergies (ED) Additional Instructions: [place] as directed/follow up with your doctor this week Referrals: Thomas Carcamo MD [Primary Care Provider] - Follow up with primary Forms: [employer] (Thai)
--- NOTE | 2017-06-08 01:07 | CT ---
EXAM: CT Head Without Intravenous Contrast CLINICAL HISTORY: 72 years old, female; Signs and symptoms; Syncope and collapse; Additional info: Near syncope TECHNIQUE: Axial computed tomography images of the head/brain without intravenous contrast. All CT scans at this facility use one or more dose reduction techniques, viz.: automated exposure control; ma/kV adjustment per patient size (including targeted exams where dose is matched to indication; i.e. head); or iterative reconstruction technique. COMPARISON: CT - HEAD W/O CONTRAST 2016-08-07 13:48 FINDINGS: Brain: No acute intracranial hemorrhage. Age-appropriate periventricular white matter disease. No edema. Ventricles: Age-appropriate ventriculomegaly. Bones: No acute displaced fracture. Right occipital post craniotomy change. Sinuses: Unremarkable as visualized. No acute sinusitis. Mastoid air cells: Unremarkable as visualized. No mastoid effusion. IMPRESSION: Stable CT examination of the brain, when compared with previous study performed 08/07/2016, without acute intracranial hemorrhage, or suspicious mass effect.
[2017-06-08 02:58] VITALS: BP 109/70; PULSE 51; TEMP 97.7; O2SAT 99
== END 2017-06-08 03:07 | disposition home or self-care (01) ==
LOC: ED 23:21
DX: R51 Headache (principal); T78.40XA Allergy, unspecified, initial encounter; X58.XXXA Exposure to other specified factors, initial encounter; M06.9 Rheumatoid arthritis, unspecified; Z88.0 Allergy status to penicillin; E05.90 Thyrotoxicosis, unspecified without thyrotoxic crisis or storm

== ENCOUNTER 2017-06-22 06:47 | Day surgery (SDC) | payer MEDICARE, BC ==
[2017-06-22 07:37] LABS: BASO # 0.04 K/mm3 (0.0-2.0); BASO % 0.7 % (0.0-3.0); EOS # 0.1 (0.0-0.7); EOS % 1.7 % (1.5-5.0); GRAN # 3.53 (1.4-6.5); GRAN % 61.7 % (50.0-68.0); HEMATOCRIT 38.8 % (36.0-48.0); LYMPH # 1.7 (1.2-3.4); LYMPH % 29.1 % (22.0-35.0); MEAN CELL VOLUME 87.8 fl (80.0-105.0); MEAN CORPUSCULAR HEMOGLOBIN 29.9 pg (25.0-35.0); MEAN PLATELET VOLUME 9.8 fl (7.0-11.0); MONO # 0.4 (0.1-0.6); MONO % 6.8 % (1.0-6.0); RED CELL DISTRIBUTION WIDTH 12.4 % (11.5-14.5); WHITE BLOOD COUNT 5.7 10^3/ul (4.5-11.0)
[2017-06-22 07:46] LABS: ALB/GLOB RATIO 1.3 (1.1-1.8); ALKALINE PHOSPHATASE 90 U/L (38-126); ALT/SGPT 30 U/L (7-56); AMYLASE 67 U/L (35-125); AST/SGOT 36 U/L (14-36); BILIRUBIN,TOTAL 1.6 mg/dL (0.2-1.3); BLOOD UREA NITROGEN 8 mg/dL (7-21); CALCIUM 9.6 mg/dL (8.4-10.5); CARBON DIOXIDE 29 mmol/L (21-33); CHLORIDE 101 mmol/L (98-107); GFR AFRICAN-AMERICAN > 60; GLUCOSE,RANDOM 106 mg/dL (70-110); LIPASE 79 U/L (23-300); POTASSIUM 3.9 mmol/L (3.6-5.0); SODIUM 142 mmol/L (132-148); TOTAL PROTEIN 8.4 g/dL (5.8-8.3)
[2017-06-22 07:54] LABS: INR 1.1 (0.93-1.08); PARTIAL THROMBOPLASTIN TIME 39.3 Seconds (25.1-36.5)
[2017-06-22] MEDS ORDERED: Sodium Chloride 0.9% 1,000 ML IV SCH (08:45)
[2017-06-22] MEDS ORDERED: Lidocaine 1% Inj (20ml) ONE (09:52)
[2017-06-22] MEDS ORDERED: Propofol 10 mg/ml Inj (20 ML) ONE (09:52)
[2017-06-22] MEDS ORDERED: ePHEDrine 50 mg/ml Inj ONE (10:08)
[2017-06-22 16:39] VITALS: BP 123/63; PULSE 66; RESP 18; TEMP 97.5; O2SAT 100
== END 2017-06-22 14:14 | disposition home or self-care (01) ==
LOC: ENDO 06:47
PROVIDERS: ATTEND Internal Medicine Gastroenterology
DX: K21.0 Gastro-esophageal reflux disease with esophagitis (principal); K57.10 Diverticulosis of small intestine without perforation or abscess without bleeding; K29.50 Unspecified chronic gastritis without bleeding; E78.00 Pure hypercholesterolemia, unspecified; H26.9 Unspecified cataract; G56.00 Carpal tunnel syndrome, unspecified upper limb; Z90.49 Acquired absence of other specified parts of digestive tract; Z88.0 Allergy status to penicillin; K59.00 Constipation, unspecified; K83.8 Other specified diseases of biliary tract
CPT/HCPCS: 36415; 43239; 43259; 80053; 82150; 82977; 83690; 85025; 85610; 85730; 88305; 88312; 88342; J2704; J3010; J7030; J7040 ×2

== ENCOUNTER 2017-08-22 01:26 | Observation (INO) | payer MEDICARE, BC ==
[2017-08-22 01:39] VITALS: BMI 23.4
[2017-08-22 02:15] LABS: BASO # 0.04 K/mm3 (0.0-2.0); BASO % 0.6 % (0.0-3.0); EOS # 0.2 (0.0-0.7); EOS % 2.6 % (1.5-5.0); GRAN # 4.38 (1.4-6.5); GRAN % 64.1 % (50.0-68.0); LYMPH # 1.8 (1.2-3.4); LYMPH % 26.8 % (22.0-35.0); MEAN CELL VOLUME 88.8 fl (80.0-105.0); MEAN CORPUSCULAR HEMOGLOBIN 29.3 pg (25.0-35.0); MEAN CORPUSCULAR HGB CONC 33.1 g/dl (31.0-37.0); MEAN PLATELET VOLUME 9.8 fl (7.0-11.0); MONO # 0.4 (0.1-0.6); MONO % 5.9 % (1.0-6.0); RBC 4.09 10^6/uL (3.5-6.1); RED CELL DISTRIBUTION WIDTH 12.7 % (11.5-14.5); WHITE BLOOD COUNT 6.8 10^3/ul (4.5-11.0)
--- NOTE | 2017-08-22 02:18 | ED PDOC ---
Arrival/HPI - General Chief Complaint: Headache Time Seen by Provider: 08/22/17 01:59 Historian: Patient, Family - History of Present Illness Narrative History of Present Illness (Text): you were treated in the ED today for history of meningeoma removal 1998, having mild gradual onset headache and then 12am chest tightness with transient sob which has improved, and you were otherwise without any nausea/vomiting/dizziness /abdomen pain/numbness/tingling/loss of limb function/travel/prior blood clots. 08/22/17 02:15 Past Medical History - Provider Review Nursing Documentation Reviewed: Yes - Travel History Have you recently traveled outside [place] w/in the past 3 mons?: No - Infectious Disease Hx of Infectious Diseases: None - Tetanus Immunization Tetanus Immunization: Unknown - Reproductive Menopause: Yes - Cardiac Hx Pacemaker: No - Pulmonary Hx Respiratory Disorders: No - Neurological Hx Neurological Disorder: Yes Other/Comment: benign brain tumor - HEENT Hx HEENT Disorder: Yes (admits use of glasses for reading) - Renal Hx Renal Disorder: No - Endocrine/Metabolic Hx Hyperthyroidism: Yes (iodine treatment) - Hematological/Oncological Hx Blood Transfusions: No - Integumentary Hx Dermatological Disorder: No - Musculoskeletal/Rheumatological Hx Musculoskeletal Disorders: Yes (tendonitis) - Gastrointestinal Hx Gastroesophageal Reflux: Yes - Genitourinary/Gynecological Other/Comment: R breast tumor - benign - Psychiatric Hx Emotional Abuse: No Hx Physical Abuse: No Hx Substance Use: No - Surgical History Hx Section: Yes (x1) Hx Cholecystectomy: Yes Other/Comment: L breast biopsy. R breast clip - Anesthesia Hx Anesthesia Reactions: No Hx Malignant Hyperthermia: No - Suicidal Assessment Feels Threatened In Home Enviroment: No Family/Social History - Physician Review Nursing Documentation Reviewed: Yes Family/Social History: No Known Family HX Smoking Status: Never Smoked Hx Alcohol Use: No Hx Substance Use: No Allergies/Home Meds Allergies/Adverse Reactions: Allergies Penicillins Allergy (Verified 06/07/17 23:47) RASH Home Medications: Home Meds Medication Instructions Recorded Confirmed Cholecalciferol (Vitamin D3) 1,000 units PO BID 06/15/17 06/15/17 [Vitamin D3] Lutein [Lutein] 20 mg PO DAILY 06/15/17 06/15/17 [place]-3 Fatty Acids/Fish Oil [Fish 1,000 mg PO DAILY 06/15/17 06/15/17 Oil 1,000 mg Capsule] Vitamin E [Vitamin E] 400 units PO DAILY 06/15/17 06/15/17 Review of Systems - Review of Systems Constitutional: Normal Eyes: Normal ENT: Normal Respiratory: SOB Cardiovascular: Chest Pain Gastrointestinal: Normal Genitourinary Female: Normal Musculoskeletal: Normal Skin: Normal Neurological: Normal Endocrine: Normal Hemo/Lymphatic: Normal Psychiatric: Normal Physical Exam Vital Signs Reviewed: Yes Vital Signs Temp Pulse Resp BP Pulse Ox 08/22/17 01:39 98.6 F 57 L 16 135/75 98 Temperature: Afebrile Blood Pressure: Hypertensive Pulse: Regular Respiratory Rate: Normal Appearance: Positive for: Well-Appearing, Non-Toxic, Comfortable Pain Distress: None Mental Status: Positive for: Alert and Oriented X 3 - Systems Exam Head: Present: Atraumatic, Normocephalic Pupils: Present: PERRL Extroacular Muscles: Present: EOMI Conjunctiva: Present: Normal Ears: Present: Normal Mouth: Present: Moist Mucous Membranes Pharnyx: Present: Normal Nose (External): Present: Atraumatic Nose (Internal): Present: Normal Inspection Neck: Present: Normal Range of Motion Respiratory/Chest: Present: Clear to Auscultation, Good Air Exchange Cardiovascular: Present: Regular Rate and Rhythm Abdomen: No: Tenderness, Distention, Normal Bowel Sounds, Peritoneal Signs, Rebound, Guarding, McBurney's Point Tender, Rovsing's Sign Present, Hernias, Feeding Tubes, Ostomy Tubes, Mass/Organomegaly, Scars, Other Back: Present: Normal Inspection Upper Extremity: Present: Normal Inspection Lower Extremity: Present: Normal Inspection Neurological: Present: GCS=15, CN II-XII Intact, Speech Normal, Motor Func Grossly Intact Skin: Present: Warm, Normal Color Psychiatric: Present: Alert, Oriented x 3, Normal Insight, Normal Concentration Medical Decision Making ED Course and Treatment: you were treated in the ED today for history of meningeoma removal 1998, having mild gradual onset headache and then 12am chest tightness with transient sob which has improved, and you were otherwise without any nausea/vomiting/dizziness /abdomen pain/numbness/tingling/loss of limb function/travel/prior blood clots. you were sitting up, comfortable, alert/oriented, good strength/sensation, no abdomen tenderness, pink skin, no fever temp 98.6, stable heart rate 57, stable breathing rate 16, excellent oxygen level 98% room air, elevated blood pressure 135/75 which we recommend followup primary care 2-3 days repeat and determine further treatment, no infection count on blood tests 6.8, stable blood levels hemaglobin/platelet 12/268, stable chemistry, heart blood test negative, radiology ct head no acute and chest xray no acute, ECG sinus bradycardia/ similar to , observation done in the ED. due to armas with chest pain - held aspirin at this time till ct head. 08/22/17 02:18 08/22/17 03:18 08/22/17 04:25 08/22/17 04:41 d/w Dr. Eng resident who stated can admit to Dr. Hand and Dr. Hand accepted. - Lab Interpretations Lab Results: 08/22/17 02:00 08/22/17 02:00 Lab Results 08/22/17 02:00: Sodium 145, Potassium 4.1, Chloride 104, Carbon Dioxide 30, Anion Gap 15, BUN 14, Creatinine 0.8, Est GFR ( Amer) > 60, Est GFR (Non- Af Amer) > 60, Random Glucose 113 H, Calcium 10.2, Total Bilirubin 0.8, AST 54 H D, ALT 23, Alkaline Phosphatase 83, Troponin I < 0.01, Total Protein 7.7, Albumin 4.3, Globulin 3.3, Albumin/Globulin Ratio 1.3 08/22/17 02:00: WBC 6.8, RBC 4.09, Hgb 12.0, Hct 36.3, MCV 88.8, MCH 29.3, MCHC 33.1, RDW 12.7, Plt Count 268, MPV 9.8, Gran % 64.1, Lymph % (Auto) 26.8, [place] % (Auto) 5.9, Eos % (Auto) 2.6, Baso % (Auto) 0.6, Gran # 4.38, Lymph # (Auto) 1.8, [place] # (Auto) 0.4, Eos # (Auto) 0.2, Baso # (Auto) 0.04 I have reviewed the lab results: Yes - RAD Interpretation Radiology Orders: 08/22/17 01:50 HEAD W/O CONTRAST [CT] Stat 08/22/17 02:37 CHEST TWO VIEWS (PA/LAT) [RAD] Stat Auto [employer] 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 Ulcer: No History Surgical Site Infection Following: None - Disposition Have Diagnosis and Disposition been Completed?: Yes Diagnosis: Chest pain, Headache Disposition Time: 04:42 Patient Plan: Admission Condition: IMPROVED Discharge Instructions (ExitCare): Chest Pain (ED) Referrals: Thomas Carcamo MD [Primary Care Provider] - Follow up with primary Forms: [employer] (Irish)
[2017-08-22 02:39] LABS: ALB/GLOB RATIO 1.3 (1.1-1.8); ALBUMIN 4.3 g/dL (3.0-4.8); ALT/SGPT 23 U/L (7-56); AST/SGOT 54 U/L (14-36); BLOOD UREA NITROGEN 14 mg/dL (7-21); CALCIUM 10.2 mg/dL (8.4-10.5); GFR AFRICAN-AMERICAN > 60; GFR NON-AFRICAN AMERICAN > 60
[2017-08-22 02:51] LABS: TROPONIN I < 0.01 ng/mL
--- NOTE | 2017-08-22 03:34 | CT ---
EXAM: CT Head Without Intravenous Contrast CLINICAL HISTORY: 72 years old, female; Pain; Headache; Headache not specified; Prior surgery; Surgery type: Crainotomy 09/1989; Additional info: Headache h/o brain tumor TECHNIQUE: Axial computed tomography images of the head/brain without intravenous contrast. All CT scans at this facility use one or more dose reduction techniques, viz.: automated exposure control; ma/kV adjustment per patient size (including targeted exams where dose is matched to indication; i.e. head); or iterative reconstruction technique. Coronal and sagittal reformatted images were created and reviewed. COMPARISON: CT - HEAD W/O CONTRAST 2017-06-08 00:51 FINDINGS: Brain: Mild atrophy. No intracranial hemorrhage. No definite mass. Few scattered foci of decreased attenuation within periventricular/subcortical white matter. No definite edema. Ventricles: No hydrocephalus. Bones/joints: No acute fracture. Right occipital craniectomy. Soft tissues: Unremarkable. Vasculature: Minimal atherosclerotic disease of intracranial arteries. Sinuses: No acute sinusitis. Mastoid air cells: No mastoid effusion. Orbits: Unremarkable as visualized. IMPRESSION: 1. Nonspecific white matter changes. Acute infarction may be CT occult within first 24 hours. If a focal deficit persists, consider followup CT or MRI for further evaluation. 2. Incidental/non-acute findings are described above.
[2017-08-22] MEDS ORDERED: Pantoprazole 40 mg EC Tab PO SCH (06:00)
--- NOTE | 2017-08-22 06:00 | CP.PCM.HP ---
<Velasquez Jacob - Last Filed: 08/22/17 06:55> History of Present Illness - History of Present Illness History of Present Illness: Velasquez Jacob PGY1 IM H&P Note cc: head/legs burning then chest pain Mrs. Coe is a 72 yo F with a past medical history significant for costochondritis, chronic gastritis, meningioma s/p surgery, carpal tunnel syndrome, s/p cholecystectomy, and RA who presented to the ED due to feeling her "head burning" right at the crown of her head x6 hours before presenting to ED. Patient states that palpating the region causes a reproducible "soreness". Upon arrival, the patient started complaining of b/l lower leg burning and chest pressure. Patient moved from [place] so she still hasn't seen a PMD in [place] yet (has appointment soon). Patient states that she has a history of some sort of thyroid issue that she took synthroid for and later required iodine treatment , but currently doesn not take anything for it. Patient's meningioma has been managed by Dr. Nicki Grenee (Neurologist; [facility]), and she believes there's a new left-sided brain mass (first one was right sided). Patient also has seen Dr. Vega for her gastritis and was recently scoped (EGD and colonoscopy) but has not seen him to discuss the results yet. Patient has a surgery planned for for removal of breast mass. At this time, the patient's symptoms have resolved and she offers no complaints and has no focal deficits. Patient denies chest pain, shortness of breath, headaches, changes in vision/hearing, n/v/d, hematemesis, head trauma, dizziness, weakness, abdominal pain. Patient states she experienced 12 pound loss over 2months but she has been more careful in her food choices due to her gastritis. 12-pt ROS was reviewed and is otherwise unremarkable. PMD: Dr. Carcamo PMH: costochondritis, chronic gastritis, meningioma s/p surgery, carpal tunnel syndrome, s/p cholecystectomy, RA PSH: , Meningioma removal, R breast cystectomy, L breast biopsy, Cholecystectomy FH: Father-unknown arrythmia with PPM placement, Mother- gout, GI problems, borther- stomach cancer, sisters- breast cancer Social: Denies tobacco, alcohol, or illicit drug use Allergies: Penicillin Home meds: Famotidine, Lipitor Present on Admission - Present on Admission Any Indicators Present on Admission: No Review of Systems - Review of Systems All systems: reviewed and no additional remarkable complaints except (as per HPI ) Past Patient History - Infectious Disease Hx of Infectious Diseases: None - Tetanus Immunizations Tetanus Immunization: Unknown - Past Medical History & Family History Past Medical History?: Yes - Past Social History Smoking Status: Never Smoked Alcohol: None Drugs: Denies Home Situation {Lives}: With Family - CARDIAC Hx Cardiac Disorders: No Hx Pacemaker: No - PULMONARY Hx Respiratory Disorders: No - NEUROLOGICAL Hx Neurological Disorder: Yes Other/Comment: benign brain tumor - HEENT Hx HEENT Problems: Yes (admits use of glasses for reading) - RENAL Hx Chronic Kidney Disease: No - ENDOCRINE/METABOLIC Other/Comment: thyroid issue (unsure if hypo/hyper) - HEMATOLOGICAL/ONCOLOGICAL Hx Blood Transfusions: No - INTEGUMENTARY Hx Dermatological Problems: No - MUSCULOSKELETAL/RHEUMATOLOGICAL Hx Musculoskeletal Disorders: Yes (tendonitis) - GASTROINTESTINAL Hx Gastrointestinal Disorders: Yes Hx Gastritis: Yes Hx Gastroesophageal Reflux: Yes - GENITOURINARY/GYNECOLOGICAL Hx Genitourinary Disorders: No Other/Comment: R breast tumor - benign - PSYCHIATRIC Hx Psychophysiologic Disorder: No Hx Emotional Abuse: No Hx Physical Abuse: No Hx Substance Use: No - SURGICAL HISTORY Hx Section: Yes (x1) Hx Cholecystectomy: Yes Other/Comment: L breast biopsy. R breast clip - ANESTHESIA Hx Anesthesia Reactions: No Hx Malignant Hyperthermia: No Meds Allergies/Adverse Reactions: Allergies Allergy/AdvReac Type Severity Reaction Status Date / Time Penicillins Allergy RASH Verified 06/07/17 23:47 Physical Exam - Constitutional Appears: Well, Non-toxic, No Acute Distress - Head Exam Head Exam: NORMAL INSPECTION - Eye Exam Eye Exam: EOMI, Normal appearance, PERRL. absent: Nystagmus - ENT Exam ENT Exam: Mucous Membranes Moist - Neck Exam Neck exam: Positive for: Normal Inspection. Negative for: Meningismus - Respiratory Exam Respiratory Exam: Clear to Auscultation Bilateral, NORMAL BREATHING PATTERN. absent: Rales, Rhonchi, Wheezes, Respiratory Distress - Cardiovascular Exam Cardiovascular Exam: Bradycardia, +S1, +S2 - GI/Abdominal Exam GI & Abdominal Exam: Normal Bowel Sounds, Soft. absent: Distended, Tenderness - Extremities Exam Extremities exam: Positive for: full ROM, normal inspection. Negative for: joint swelling, pedal edema - Back Exam Back exam: NORMAL INSPECTION - Neurological Exam Neurological exam: Alert, CN II-XII Intact, Oriented x3, Reflexes Normal Additional comments: no motor sensory deficits - Psychiatric Exam Psychiatric exam: Normal Affect, Normal Mood - Skin Skin Exam: Normal Color, Warm Additional comments: no rashes noted Results - Vital Signs Recent Vital Signs: Last Vital Signs Temp 98.6 F 08/22/17 01:39 Pulse 56 L 08/22/17 04:42 Resp 18 08/22/17 04:42 BP 112/58 L 08/22/17 04:42 Pulse Ox 96 08/22/17 04:42 - Labs Result Diagrams: 08/22/17 06:00 08/22/17 06:00 Assessment & Plan - Assessment and Plan (Free Text) Assessment: 72 year old F with a past medical history significant for costochondritis, chronic gastritis, meningioma s/p surgery, carpal tunnel syndrome, s/p cholecystectomy, and RA who presented to the ED complaining of a headache, b/l leg burning and chest pain. Patient found to be bradycardic. Plan: 1. Headache and leg burning - CT head was unremarkable - TSH and thyroid levels ordered - neurochecks - MV ordered - magnesium and phos ordered, replete if necessary - A1C ordered - ACHS accucheck - PT eval 2. Chest pain, need to r/o ACS -likely musculoskeletal etiology given hx of costochondritis and relief w/ tylenol or gastritis -cardiology consulted, all recs appreciated - start ASA 81mg daily - cont Lipitor daily - cont pepcid daily -troponin x1 negative, continue to trend -EKG shows sinus bradycardia and possible RSR' RV conduction delay - CXR was unremarkable as read by me -Echo from 02/2017 was unremarkable -TSH, A1C, Lipid panel pending -NPO in case cardiac intervention -Vital signs monitoring -telemetry monitoring 3. GI/DVT Prophylaxis -pepcid/scd's Patient was seen, examined and discussed with attending, Dr. Billy Jacob PGY1 <Александр Irizarry N - Last Filed: 08/23/17 06:26> Results - Vital Signs Recent Vital Signs: Last Vital Signs Temp 98.2 F 08/23/17 05:17 Pulse 56 L 08/23/17 05:17 Resp 20 08/23/17 05:17 BP 127/68 08/23/17 05:17 Pulse Ox 96 08/23/17 05:17 - Labs Result Diagrams: 08/23/17 05:20 08/22/17 06:00 Labs: Laboratory Results - last 24 hr 08/22/17 08/22/17 08/22/17 06:00 06:00 06:00 WBC RBC Hgb Hct MCV MCH MCHC RDW Plt Count MPV PT 11.8 INR 1.03 Sodium 142 Potassium 3.9 Chloride 105 Carbon Dioxide 26 Anion Gap 15 BUN 12 Creatinine 0.6 L Est GFR ( Amer) > 60 Est GFR (Non-Af Amer) > 60 POC Glucose (mg/dL) Random Glucose 105 Hemoglobin A1c Calcium 9.9 Phosphorus 4.2 Magnesium 2.2 Total Bilirubin 0.9 AST 33 ALT 26 Alkaline Phosphatase 75 Lactate Dehydrogenase Total Creatine Kinase Troponin I Total Protein 7.2 Albumin 4.0 Globulin 3.1 Albumin/Globulin Ratio 1.3 Triglycerides 76 Cholesterol 129 L LDL Cholesterol Direct 43 HDL Cholesterol 56 Vitamin B12 Free T4 Thyroxine (T4) Free T3 pg/mL 3.50 Total T3 TSH 3rd Generation 08/22/17 08/22/17 08/22/17 06:00 06:00 07:30 WBC RBC Hgb Hct MCV MCH MCHC RDW Plt Count MPV PT INR Sodium Potassium Chloride Carbon Dioxide Anion Gap BUN Creatinine Est GFR ( Amer) Est GFR (Non-Af Amer) POC Glucose (mg/dL) Random Glucose Hemoglobin A1c 5.3 Calcium Phosphorus Magnesium Total Bilirubin AST ALT Alkaline Phosphatase Lactate Dehydrogenase 402 Total Creatine Kinase 59 Troponin I < 0.01 Total Protein Albumin Globulin Albumin/Globulin Ratio Triglycerides Cholesterol LDL Cholesterol Direct HDL Cholesterol Vitamin B12 Free T4 0.84 Thyroxine (T4) 7.5 Free T3 pg/mL Total T3 1.28 TSH 3rd Generation 2.44 08/22/17 08/22/17 08/22/17 11:30 12:06 14:00 WBC RBC Hgb Hct MCV MCH MCHC RDW Plt Count MPV PT INR Sodium Potassium Chloride Carbon Dioxide Anion Gap BUN Creatinine Est GFR ( Amer) Est GFR (Non-Af Amer) POC Glucose (mg/dL) 81 Random Glucose Hemoglobin A1c Calcium Phosphorus Magnesium Total Bilirubin AST ALT Alkaline Phosphatase Lactate Dehydrogenase 305 L Total Creatine Kinase 55 Troponin I < 0.01 Total Protein Albumin Globulin Albumin/Globulin Ratio Triglycerides Cholesterol LDL Cholesterol Direct HDL Cholesterol Vitamin B12 583 Free T4 Thyroxine (T4) Free T3 pg/mL Total T3 TSH 3rd Generation 08/22/17 08/22/17 08/23/17 15:47 21:49 05:20 WBC 5.8 D RBC 4.08 Hgb 11.9 L Hct 36.0 MCV 88.2 MCH 29.2 MCHC 33.1 RDW 12.6 Plt Count 272 MPV 10.0 PT INR Sodium Potassium Chloride Carbon Dioxide Anion Gap BUN Creatinine Est GFR ( Amer) Est GFR (Non-Af Amer) POC Glucose (mg/dL) 84 90 Random Glucose Hemoglobin A1c Calcium Phosphorus Magnesium Total Bilirubin AST ALT Alkaline Phosphatase Lactate Dehydrogenase Total Creatine Kinase Troponin I Total Protein Albumin Globulin Albumin/Globulin Ratio Triglycerides Cholesterol LDL Cholesterol Direct HDL Cholesterol Vitamin B12 Free T4 Thyroxine (T4) Free T3 pg/mL Total T3 TSH 3rd Generation
[2017-08-22 06:15] LABS: HEMOGLOBIN 11.7 g/dL (12.0-16.0); MEAN CELL VOLUME 88.3 fl (80.0-105.0); MEAN CORPUSCULAR HEMOGLOBIN 29.3 pg (25.0-35.0); MEAN CORPUSCULAR HGB CONC 33.1 g/dl (31.0-37.0); MEAN PLATELET VOLUME 9.7 fl (7.0-11.0); RED CELL DISTRIBUTION WIDTH 12.7 % (11.5-14.5); WHITE BLOOD COUNT 7.5 10^3/ul (4.5-11.0)
[2017-08-22 06:34] LABS: ALB/GLOB RATIO 1.3 (1.1-1.8); ALT/SGPT 26 U/L (7-56); AST/SGOT 33 U/L (14-36); BLOOD UREA NITROGEN 12 mg/dL (7-21); CALCIUM 9.9 mg/dL (8.4-10.5); GFR AFRICAN-AMERICAN > 60; GFR NON-AFRICAN AMERICAN > 60; MAGNESIUM 2.2 mg/dL (1.7-2.2)
[2017-08-22 06:36] LABS: INR 1.03 (0.93-1.08); PROTHROMBIN TIME 11.8 SECONDS (9.4-12.5)
[2017-08-22 06:47] LABS: FREE T4 0.84 ng/dL (0.78-2.19); T4 7.5 ug/dL (5.5-11.0)
[2017-08-22 07:01] LABS: T3 1.28 ng/mL (0.97-1.69)
[2017-08-22 10:35] LABS: TROPONIN I < 0.01 ng/mL
--- NOTE | 2017-08-22 10:37 | RAD ---
HISTORY: Chest tightness COMPARISON: 02/09/2017 TECHNIQUE: Chest PA and lateral FINDINGS: LUNGS: No active pulmonary disease. PLEURA: No significant pleural effusion identified. No pneumothorax apparent. CARDIOVASCULAR: Normal. OSSEOUS STRUCTURES: No significant abnormalities. Stable thoracolumbar scoliosis VISUALIZED UPPER ABDOMEN: Normal. OTHER FINDINGS: None. IMPRESSION: No active disease. No significant interval change compared to the prior examination(s).
[2017-08-22] MEDS: Multivitamin With Minerals Tab PO SCH (11:25)
[2017-08-22 14:39] LABS: TROPONIN I < 0.01 ng/mL
--- NOTE | 2017-08-22 20:43 | CARD ---
APPROVED REPORT EKG Measurement Heart [id number] <Conclusion> Sinus bradycardia Nonspecific T wave abnormality Abnormal ECG
--- NOTE | 2017-08-22 21:34 | CARD ---
APPROVED REPORT EKG Measurement Heart [id number] [place] [id number] <Conclusion> Sinus bradycardia RSR' or QR pattern in V1 suggests right ventricular conduction delay Borderline ECG
[2017-08-23 06:18] LABS: HEMOGLOBIN 11.9 g/dL (12.0-16.0); MEAN CELL VOLUME 88.2 fl (80.0-105.0); MEAN CORPUSCULAR HEMOGLOBIN 29.2 pg (25.0-35.0); MEAN CORPUSCULAR HGB CONC 33.1 g/dl (31.0-37.0); RBC 4.08 10^6/uL (3.5-6.1); RED CELL DISTRIBUTION WIDTH 12.6 % (11.5-14.5); WHITE BLOOD COUNT 5.8 10^3/ul (4.5-11.0)
[2017-08-23 06:44] LABS: ALB/GLOB RATIO 1.2 (1.1-1.8); ALBUMIN 3.8 g/dL (3.0-4.8); ALT/SGPT 28 U/L (7-56); AST/SGOT 32 U/L (14-36); BLOOD UREA NITROGEN 18 mg/dL (7-21); CALCIUM 9.6 mg/dL (8.4-10.5); GFR AFRICAN-AMERICAN > 60; GFR NON-AFRICAN AMERICAN > 60
[2017-08-23 07:03] LABS: INR 1.03 (0.93-1.08); PROTHROMBIN TIME 11.9 SECONDS (9.4-12.5)
[2017-08-23] MEDS: Multivitamin With Minerals Tab PO SCH (08:42)
--- NOTE | 2017-08-23 11:04 | CARD ---
APPROVED REPORT EKG Measurement Heart [id number] [place] [id number] <Conclusion> Sinus bradycardia RVCD Nonspecific T wave abnormality
[2017-08-23 12:25] VITALS: BP 155/79; RESP 16; TEMP 97.9; O2SAT 99
--- NOTE | 2017-08-23 13:14 | CP.PCM.DIS ---
<Andie Bassett - Last Filed: 08/23/17 15:22> Provider - Provider Date of Admission: 08/22/17 05:22 Attending physician: Mars Hebert MD Primary care physician: Thomas Carcamo MD Consults: Cardio Jaguar Time Spent in preparation of Discharge (in minutes): 35 Diagnosis - Discharge Diagnosis (1) Costochondritis Status: Acute (2) Chest pain Status: Acute (3) Headache Status: Acute Hospital Course - Lab Results Lab Results: Most Recent Lab Values WBC 5.8 10^3/ul (4.5-11.0) D 08/23/17 05:20 RBC 4.08 10^6/uL (3.5-6.1) 08/23/17 05:20 Hgb 11.9 g/dL (12.0-16.0) L 08/23/17 05:20 Hct 36.0 % (36.0-48.0) 08/23/17 05:20 MCV 88.2 fl (80.0-105.0) 08/23/17 05:20 MCH 29.2 pg (25.0-35.0) 08/23/17 05:20 MCHC 33.1 g/dl (31.0-37.0) 08/23/17 05:20 RDW 12.6 % (11.5-14.5) 08/23/17 05:20 Plt Count 272 10^3/uL (120.0-450.0) 08/23/17 05:20 MPV 10.0 fl (7.0-11.0) 08/23/17 05:20 Gran % 64.1 % (50.0-68.0) 08/22/17 02:00 Lymph % (Auto) 26.8 % (22.0-35.0) 08/22/17 02:00 Chambers % (Auto) 5.9 % (1.0-6.0) 08/22/17 02:00 Eos % (Auto) 2.6 % (1.5-5.0) 08/22/17 02:00 Baso % (Auto) 0.6 % (0.0-3.0) 08/22/17 02:00 Gran # 4.38 (1.4-6.5) 08/22/17 02:00 Lymph # (Auto) 1.8 (1.2-3.4) 08/22/17 02:00 Chambers # (Auto) 0.4 (0.1-0.6) 08/22/17 02:00 Eos # (Auto) 0.2 (0.0-0.7) 08/22/17 02:00 Baso # (Auto) 0.04 K/mm3 (0.0-2.0) 08/22/17 02:00 PT 11.9 SECONDS (9.4-12.5) 08/23/17 05:20 INR 1.03 (0.93-1.08) 08/23/17 05:20 Sodium 143 mmol/L (132-148) 08/23/17 05:20 Potassium 3.6 mmol/L (3.6-5.0) 08/23/17 05:20 Chloride 104 mmol/L (98-107) 08/23/17 05:20 Carbon Dioxide 27 mmol/L (21-33) 08/23/17 05:20 Anion Gap 15 (10-20) 08/23/17 05:20 BUN 18 mg/dL (7-21) 08/23/17 05:20 Creatinine 0.7 mg/dl (0.7-1.2) 08/23/17 05:20 Est GFR ( Amer) > 60 08/23/17 05:20 Est GFR (Non-Af Amer) > 60 08/23/17 05:20 POC Glucose (mg/dL) 101 mg/dL (65-110) 08/23/17 11:41 Random Glucose 95 mg/dL (70-110) 08/23/17 05:20 Hemoglobin A1c 5.3 % (4.2-6.5) 08/22/17 06:00 Calcium 9.6 mg/dL (8.4-10.5) 08/23/17 05:20 Phosphorus 4.2 mg/dL (2.5-4.5) 08/22/17 06:00 Magnesium 2.2 mg/dL (1.7-2.2) 08/22/17 06:00 Total Bilirubin 1.1 mg/dL (0.2-1.3) 08/23/17 05:20 AST 32 U/L (14-36) 08/23/17 05:20 ALT 28 U/L (7-56) 08/23/17 05:20 Alkaline Phosphatase 72 U/L (38-126) 08/23/17 05:20 Lactate Dehydrogenase 305 U/L (333-699) L 08/22/17 14:00 Total Creatine Kinase 55 U/L (35-230) 08/22/17 14:00 Troponin I < 0.01 ng/mL 08/22/17 14:00 Total Protein 6.9 g/dL (5.8-8.3) 08/23/17 05:20 Albumin 3.8 g/dL (3.0-4.8) 08/23/17 05:20 Globulin 3.1 gm/dL 08/23/17 05:20 Albumin/Globulin Ratio 1.2 (1.1-1.8) 08/23/17 05:20 Triglycerides 76 mg/dL (35-160) 08/22/17 06:00 Cholesterol 129 mg/dL (130-200) L 08/22/17 06:00 LDL Cholesterol Direct 43 mg/dL (0-129) 08/22/17 06:00 HDL Cholesterol 56 mg/dL (29-60) 08/22/17 06:00 Vitamin B12 583 pg/mL (239-931) 08/22/17 11:30 Free T4 0.84 ng/dL (0.78-2.19) 08/22/17 06:00 Thyroxine (T4) 7.5 ug/dL (5.5-11.0) 08/22/17 06:00 Free T3 pg/mL 3.50 pg/mL (2.77-5.27) 08/22/17 06:00 Total T3 1.28 ng/mL (0.97-1.69) 08/22/17 06:00 TSH 3rd Generation 2.44 mIU/mL (0.46-4.68) 08/22/17 06:00 - Hospital Course Hospital Course: 72 yo F with a past medical history significant for costochondritis, chronic gastritis, meningioma s/p surgery, carpal tunnel syndrome, s/p cholecystectomy, and RA who presented to the ED for an occipital headache and bilateral leg burning for past few hours. Pt also admitted to midsternal chest discomfort/ pressure. Pt admitted for chest pain, rule out ACS. On physical exam, pt had reproducible chest pain with palpation. EKG and troponins were negative x3. TSH , vitamin B12, hemoglobin A1C were all within normal limits. CT head was negative. Echocardiogram done 02/11/2017 showed normal EF, no valvular abnormalities, mild diastolic dysfunction. Cardiology (Dr Montesinos) was consulted and recommended outpatient cardiology follow up for stress test. 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 Discharge Exam - Head Exam Head Exam: NORMAL INSPECTION - Eye Exam Eye Exam: EOMI, PERRL. absent: Conjunctival injection, Nystagmus Pupil Exam: NORMAL ACCOMODATION, PERRL - ENT Exam ENT Exam: Mucous Membranes Moist - Neck Exam Neck exam: Full Rom - Respiratory Exam Respiratory Exam: Clear to PA & Lateral, NORMAL BREATHING PATTERN. absent: Accessory Muscle Use, Chest Wall Tenderness, Wheezes, Stridor - Cardiovascular Exam Cardiovascular Exam: RRR, +S1, +S2. absent: Systolic Murmur - GI/Abdominal Exam GI & Abdominal Exam: Normal Bowel Sounds, Soft. absent: Distended, Organomegaly , Tenderness - Extremities Exam Extremities exam: normal inspection - Back Exam Back exam: NORMAL INSPECTION - Neurological Exam Neurological exam: Alert, Oriented x3 - Psychiatric Exam Psychiatric exam: Normal Affect, Normal Mood - Skin Skin Exam: Dry, Normal Color, Warm Discharge Plan - Discharge Medications Prescriptions: Aspirin [Ecotrin] 81 mg PO DAILY 30 Days tabec Multimineral/Multivitamin [Therapeutic-M Tab] 1 tab PO 0800 #30 tab - Follow Up Plan Condition: IMPROVED Disposition: HOME/ ROUTINE Instructions: Chest Pain (DC), Costochondritis (DC) Additional Instructions: - Take ASA 81 mg, and continue with other home medications Lisinopril and lipitor. - F/u with grinding wheel operator (in [place]) in 1 week for an outpatient stress test. - F/u with primary care doctor in 1 week. - Return to ER if any concerns. Referrals: Thomas Carcamo MD [Primary Care Provider] - <Mackenzie Stewart - Last Filed: 08/23/17 16:38> Provider - Provider Date of Admission: 08/22/17 05:22 Attending physician: Mars Hebert MD Primary care physician: Thomas Carcamo MD Hospital Course - Lab Results Lab Results: Most Recent Lab Values WBC 5.8 10^3/ul (4.5-11.0) D 08/23/17 05:20 RBC 4.08 10^6/uL (3.5-6.1) 08/23/17 05:20 Hgb 11.9 g/dL (12.0-16.0) L 08/23/17 05:20 Hct 36.0 % (36.0-48.0) 08/23/17 05:20 MCV 88.2 fl (80.0-105.0) 08/23/17 05:20 MCH 29.2 pg (25.0-35.0) 08/23/17 05:20 MCHC 33.1 g/dl (31.0-37.0) 08/23/17 05:20 RDW 12.6 % (11.5-14.5) 08/23/17 05:20 Plt Count 272 10^3/uL (120.0-450.0) 08/23/17 05:20 MPV 10.0 fl (7.0-11.0) 08/23/17 05:20 Gran % 64.1 % (50.0-68.0) 08/22/17 02:00 Lymph % (Auto) 26.8 % (22.0-35.0) 08/22/17 02:00 Chambers % (Auto) 5.9 % (1.0-6.0) 08/22/17 02:00 Eos % (Auto) 2.6 % (1.5-5.0) 08/22/17 02:00 Baso % (Auto) 0.6 % (0.0-3.0) 08/22/17 02:00 Gran # 4.38 (1.4-6.5) 08/22/17 02:00 Lymph # (Auto) 1.8 (1.2-3.4) 08/22/17 02:00 Chambers # (Auto) 0.4 (0.1-0.6) 08/22/17 02:00 Eos # (Auto) 0.2 (0.0-0.7) 08/22/17 02:00 Baso # (Auto) 0.04 K/mm3 (0.0-2.0) 08/22/17 02:00 PT 11.9 SECONDS (9.4-12.5) 08/23/17 05:20 INR 1.03 (0.93-1.08) 08/23/17 05:20 Sodium 143 mmol/L (132-148) 08/23/17 05:20 Potassium 3.6 mmol/L (3.6-5.0) 08/23/17 05:20 Chloride 104 mmol/L (98-107) 08/23/17 05:20 Carbon Dioxide 27 mmol/L (21-33) 08/23/17 05:20 Anion Gap 15 (10-20) 08/23/17 05:20 BUN 18 mg/dL (7-21) 08/23/17 05:20 Creatinine 0.7 mg/dl (0.7-1.2) 08/23/17 05:20 Est GFR ( Amer) > 60 08/23/17 05:20 Est GFR (Non-Af Amer) > 60 08/23/17 05:20 POC Glucose (mg/dL) 101 mg/dL (65-110) 08/23/17 11:41 Random Glucose 95 mg/dL (70-110) 08/23/17 05:20 Hemoglobin A1c 5.3 % (4.2-6.5) 08/22/17 06:00 Calcium 9.6 mg/dL (8.4-10.5) 08/23/17 05:20 Phosphorus 4.2 mg/dL (2.5-4.5) 08/22/17 06:00 Magnesium 2.2 mg/dL (1.7-2.2) 08/22/17 06:00 Total Bilirubin 1.1 mg/dL (0.2-1.3) 08/23/17 05:20 AST 32 U/L (14-36) 08/23/17 05:20 ALT 28 U/L (7-56) 08/23/17 05:20 Alkaline Phosphatase 72 U/L (38-126) 08/23/17 05:20 Lactate Dehydrogenase 305 U/L (333-699) L 08/22/17 14:00 Total Creatine Kinase 55 U/L (35-230) 08/22/17 14:00 Troponin I < 0.01 ng/mL 08/22/17 14:00 Total Protein 6.9 g/dL (5.8-8.3) 08/23/17 05:20 Albumin 3.8 g/dL (3.0-4.8) 08/23/17 05:20 Globulin 3.1 gm/dL 08/23/17 05:20 Albumin/Globulin Ratio 1.2 (1.1-1.8) 08/23/17 05:20 Triglycerides 76 mg/dL (35-160) 08/22/17 06:00 Cholesterol 129 mg/dL (130-200) L 08/22/17 06:00 LDL Cholesterol Direct 43 mg/dL (0-129) 08/22/17 06:00 HDL Cholesterol 56 mg/dL (29-60) 08/22/17 06:00 Vitamin B12 583 pg/mL (239-931) 08/22/17 11:30 Free T4 0.84 ng/dL (0.78-2.19) 08/22/17 06:00 Thyroxine (T4) 7.5 ug/dL (5.5-11.0) 08/22/17 06:00 Free T3 pg/mL 3.50 pg/mL (2.77-5.27) 08/22/17 06:00 Total T3 1.28 ng/mL (0.97-1.69) 08/22/17 06:00 TSH 3rd Generation 2.44 mIU/mL (0.46-4.68) 08/22/17 06:00 Attending/Attestation - Attestation I have personally seen and examined this patient.: Yes I have fully participated in the care of the patient.: Yes I have reviewed all pertinent clinical information, including history, physical exam and plan: Yes Notes (Text): 08/23/17 16:35 72 year old female with past medical history of chronic gastritis, meningioma s/ p surgery, and costochondritis who presented with complaints of chest pain and headache. Serial cardiac enzymes were negative and ACS was ruled out. CT head was negative for acute findings. She was seen by cardiology who recommended outpatient cardiology follow up for elective stress stress. Patient is discharged home to follow up with pmd. Follow up with grinding wheel operator for outpatient stress test. Mackenzie Stewart MD Hospitalist.
[2017-08-23 13:59] VITALS: PULSE 78
--- NOTE | 2017-08-23 19:25 | CON ---
DATE: 08/23/2017 INDICATION: Chest pain. HISTORY OF PRESENT ILLNESS: This is a 72-year-old woman with complex medical problems, admitted to the emergency room yesterday with chest discomfort. Her initial symptoms included burning discomfort in her head with soreness. She also noted lower extremity symptoms and chest discomfort in the emergency room. Subsequently, she has had EKGs and enzymes, which were unremarkable. The chest pain has resolved. She has a history of gastritis and sometimes takes antacid food with this type of symptom. The headache has improved. She has a history of meningioma surgery and is followed by a neurologist in [place]. There may be a recurrence of meningioma. She has also had a recent GI evaluation by Dr. Vega with an EGD and colonoscopy. Today, there is no chest pain. She does not describe exertional chest pain, shortness of breath, orthopnea, PND, syncope, presyncope, lightheadedness, dizziness, vertigo, palpitations, edema, claudication, fever, chills, cough, sputum production, hemoptysis, abdominal pain, nausea, vomiting, diarrhea, constipation, or melena. PAST SURGICAL HISTORY: Notable for brain surgery for meningioma in 1998. She has a gallbladder surgery. PAST MEDICAL HISTORY: She has a history of thyroid disease with iodine treatment and Synthroid in the past, but not currently. She has history of gastritis, costochondritis, rheumatoid arthritis, carpal tunnel syndrome. She has had a and breast biopsies. She was scheduled for a breast biopsy later this month. There is no history of rheumatic fever, myocardial infarction, angina, arrhythmia, diabetes, stroke, TIA, or gout. MEDICATIONS: At the time of admission include vitamin D, lutein, omega-3 fish oils, and vitamin E. ALLERGIES: SHE NOTES AN ALLERGY TO PENICILLIN. SOCIAL HISTORY: She does not smoke, she does not drink alcohol. She lives at home. She is ambulatory. FAMILY HISTORY: Notable for heart disease in her father who had a permanent pacemaker. REVIEW OF SYSTEMS: Ten-point review of systems is otherwise unremarkable except as noted above. PHYSICAL EXAMINATION: GENERAL: She is a well-developed woman, lying in bed on 3R. VITAL SIGNS: She is in sinus rhythm to sinus bradycardia. She is afebrile. Recent pulse 56, blood pressure 126/68, respirations 16 to 20. O2 saturation 93% to 96 % on room air. HEENT: Reveals no neck vein distention, thyromegaly, or carotid bruit. Mucous membranes moist. Conjunctivae pink. NECK: Supple. LUNGS: Lung leiva clear throughout. HEART: Examination of the heart revealed normal first and second heart sounds. I do not appreciate a murmur, gallop, rub, or click. ABDOMEN: Soft. Bowel sounds are present. No mass, organomegaly, tenderness, rebound, guarding, CVA tenderness, or palpable abdominal aortic aneurysm. EXTREMITIES: Reveal no cyanosis, clubbing, or edema. NEUROLOGIC: Awake, alert, and oriented. PSYCHIATRIC: Normal as to mood and affect. SKIN: Warm and dry. No rash or cellulitis. LABORATORY AND IMAGING: CT scan of the head is noted, no evidence of stroke. Chest x-ray revealed no active disease. EKG demonstrates regular sinus rhythm with a leftward axis, right ventricular conduction delay, mild nonspecific ST wave changes, unchanged from a prior EKG. White count normal, platelet count normal, hemoglobin 11.9, hematocrit 36. PT/INR unremarkable. Electrolytes, BUN, creatinine, blood sugar unremarkable. LFTs unremarkable. CK is 59, troponin negative x3. Total cholesterol 129, LDL 43, triglycerides 76, HDL 56. Thyroid function test appeared normal. IMPRESSION: Cat Coe is a 72-year-old woman admitted with headache in the setting of remote meningioma surgery and possible recurrence, who also developed chest discomfort, but no evidence of ischemia on her EKGs, arrhythmia on telemetry, and her enzymes are flat. PLAN: At this time, I agreed with current plans. She is undergoing neurologic studies. I will get an echocardiogram. She can be considered for an outpatient nuclear stress test. She was given aspirin, Lipitor, Pepcid, multivitamins, and Tylenol. I will repeat her EKG today. She can be out of bed to chair. Neurologic followup with her neurologist in [place] would be appropriate. Following discharge. I will discuss the case further with you. I will follow along with you. I will make additional recommendations based on her clinical course. Georges Montesinos MD
== END 2017-08-23 14:56 | disposition home or self-care (01) ==
LOC: ED 01:26 → ERH 05:22 → 3RSO 08:58
PROVIDERS: ADMIT Internal Medicine; ATTEND Internal Medicine
DX: M94.0 Chondrocostal junction syndrome [Tietze] (principal); R51 Headache; R00.1 Bradycardia, unspecified; K29.50 Unspecified chronic gastritis without bleeding; M06.9 Rheumatoid arthritis, unspecified; K21.9 Gastro-esophageal reflux disease without esophagitis; G56.00 Carpal tunnel syndrome, unspecified upper limb; Z86.011 Personal history of benign neoplasm of the brain; Z90.49 Acquired absence of other specified parts of digestive tract; Z88.0 Allergy status to penicillin
CPT/HCPCS: 36415; 70450; 71046; 80053; 80061; 82550; 82607; 82948; 83036; 83615; 83735; 84100; 84439; 84443; 84481; 84484; 85025; 85027; 85610; 93005; 97116; 97161; 99285; G0378; G8978; G8979; G8980

== ENCOUNTER 2017-11-23 10:52 | Emergency (ER) | payer MEDICARE, BC ==
[2017-11-23 11:19] VITALS: TEMP 98.3
[2017-11-23 11:57] VITALS: BMI 25.9
--- NOTE | 2017-11-23 12:07 | ED PDOC ---
Arrival/HPI - General Chief Complaint: Lower Extremity Problem/Injury Time Seen by Provider: 11/23/17 11:00 - History of Present Illness Narrative History of Present Illness (Text): 11/23/17 11:52 Patient is a 72 year old female with a past medical history of gout, hyperlipidemia, costochondritis, and GERD who presents to the Emergency department complaining of right foot pain and chest pain. Patient says last weekend she was standing on her tip toes reaching for something in a cabinet above her when she noticed a sharp pain in her right foot extending from her first and second toes up her forefoot. Patient says the next day she noticed that they turned black and blue and she was having difficulty walking on that side. Patient says throughout the week she had intermittent sharp 8/10 pain in that area and started to develop swelling and redness in the area of pain. Patient says this lasted until yesterday and now she is just having pain. She denies any numbness and tingling in the foot or leg but does admit to some occasional pain in her right calf/behind her right knee. Patient also admits to non-radiating chest heaviness on the left side that started this morning. Patient says she had something similar in the past and was diagnosed with costochondritis, but this time she feels like theres more of a pressure than pain like last time. Patient says it only last 3-4 minutes and is gone now. She denies fever, chills, headache, shortness of breath, cough, palpitations, abdominal pain, N&V, diarrhea, constipation. Past Medical History - Infectious Disease Hx of Infectious Diseases: None - Tetanus Immunization Tetanus Immunization: Unknown - Cardiac Hx Cardiac Disorders: No - Pulmonary Hx Respiratory Disorders: No - Neurological Hx Neurological Disorder: Yes Other/Comment: benign brain tumor - HEENT Hx HEENT Disorder: Yes - Renal Hx Renal Disorder: No - Endocrine/Metabolic Hx Endocrine Disorders: Yes Other/Comment: thyroid issue (unsure if hypo/hyper) - Hematological/Oncological Hx Blood Disorders: Yes Hx Cancer: Yes (Brain) - Integumentary Hx Dermatological Disorder: No - Musculoskeletal/Rheumatological Hx Musculoskeletal Disorders: Yes Hx Gout: Yes - Gastrointestinal Hx Gastrointestinal Disorders: Yes Hx Gastroesophageal Reflux: Yes - Genitourinary/Gynecological Hx Genitourinary Disorders: No Other/Comment: R breast tumor - benign - Psychiatric Hx Psychophysiologic Disorder: No Hx Emotional Abuse: No Hx Physical Abuse: No Hx Substance Use: No - Surgical History Hx Cholecystectomy: Yes Other/Comment: L breast biopsy. R breast clip - Anesthesia Hx Anesthesia Reactions: No Hx Malignant Hyperthermia: No - Suicidal Assessment Feels Threatened In Home Enviroment: No Family/Social History Family/Social History: Unknown Family HX Smoking Status: Never Smoked Hx Alcohol Use: No Hx Substance Use: No Allergies/Home Meds Allergies/Adverse Reactions: Allergies Penicillins Allergy (Verified 11/23/17 11:10) RASH Home Medications: Home Meds Medication Instructions Recorded Confirmed Atorvastatin [Lipitor] 10 mg PO DIN 08/22/17 11/23/17 Famotidine [Pepcid] 40 mg PO DAILY 08/22/17 11/23/17 Colchicine [Mitigare] 1 tab PO DAILY 11/23/17 11/23/17 Review of Systems - Physician Review All systems were reviewed & negative as marked: Yes - Review of Systems Constitutional: Normal. absent: Fevers Eyes: Normal. absent: Vision Changes ENT: Normal. absent: Hearing Changes Respiratory: Normal. absent: SOB, Cough, Sputum, Wheezing Cardiovascular: Chest Pain, Calf Pain. absent: Palpitations, Edema, MANUEL Gastrointestinal: Normal. absent: Abdominal Pain, Constipation, Diarrhea, Nausea, Vomiting Musculoskeletal: Other (pain in ). absent: Back Pain, Neck Pain Skin: Normal. absent: Rash, Pruritis, Skin Lesions, Laceration, Cellulitis Physical Exam Vital Signs Temp Pulse Resp BP Pulse Ox 11/23/17 11:51 98.3 F 72 16 181/93 H 99 11/23/17 11:11 98.3 F 89 16 127/84 97 - Systems Exam Head: Present: Atraumatic, Normocephalic Pupils: Present: PERRL Extroacular Muscles: Present: EOMI Conjunctiva: Present: Normal Mouth: Present: Moist Mucous Membranes Neck: Present: Normal Range of Motion. No: JVD Respiratory/Chest: Present: Clear to Auscultation, Good Air Exchange. No: Respiratory Distress, Accessory Muscle Use Cardiovascular: Present: Regular Rate and Rhythm, Normal S1, S2. No: Murmurs Abdomen: Present: Normal Bowel Sounds. No: Tenderness, Distention, Peritoneal Signs Upper Extremity: Present: Normal Inspection. No: Cyanosis, Edema Lower Extremity: Present: NORMAL PULSES, Normal ROM, Tenderness (over the 1st and 2nd metatarsal and phalanges), Neurovascularly Intact. No: Edema, CALF TENDERNESS, Cyanosis, Coleman's Sign, Swelling, Erythema Neurological: Present: GCS=15, Speech Normal Skin: Present: Warm, Dry, Normal Color. No: Rashes Psychiatric: Present: Alert, Oriented x 3, Normal Insight, Normal Concentration Medical Decision Making ED Course and Treatment: 11/23/17 12:15 ECG: normal sinus rhythm @ 70 bpm with possible right ventricular conduction abnormality Chest X-ray: no acute disease Cardiac enzymes: negative LE US: no evidence of DVT Right foot XR: mild degenerative changes in the 1st MTP joint, otherwise negative study - Lab Interpretations Lab Results: 11/23/17 12:40 11/23/17 12:40 Lab Results 11/23/17 12:40: Sodium 147, Potassium 3.6, Chloride 104, Carbon Dioxide 29, Anion Gap 17, BUN 17, Creatinine 0.7, Est GFR ( Amer) > 60, Est GFR (Non- Af Amer) > 60, Random Glucose 121 H, Calcium 9.3, Total Bilirubin 0.7, AST 42 H D, ALT 34, Alkaline Phosphatase 82, Lactate Dehydrogenase 404, Total Creatine Kinase 62, Troponin I < 0.01, Total Protein 8.0, Albumin 4.5, Globulin 3.5, Albumin/Globulin Ratio 1.3 11/23/17 12:40: WBC 4.4 L D, RBC 4.26, Hgb 12.5, Hct 36.7, MCV 86.2, MCH 29.3, MCHC 34.1, RDW 12.6, Plt Count 310, MPV 10.1, Gran % 53.8, Lymph % (Auto) 35.9 H , [place] % (Auto) 6.6 H, Eos % (Auto) 3.2, Baso % (Auto) 0.5, Gran # 2.37, Lymph # (Auto) 1.6, [place] # (Auto) 0.3, Eos # (Auto) 0.1, Baso # (Auto) 0.02 - RAD Interpretation Radiology Orders: 11/23/17 11:42 CHEST PORTABLE [RAD] Stat FOOT RIGHT 3 VIEWS ROUTINE [RAD] Stat 11/23/17 11:48 DUPLEX LOWER EXTRM VEIN RIGHT [US] Stat - PA / PROJECT GEOLOGIST / Resident Statement /DO has reviewed & agrees with the documentation as recorded. /DO has examined the patient and agrees with the treatment plan. Disposition/Present on Arrival - Present on Arrival Any Indicators Present on Arrival: No History of DVT/PE: No History of Uncontrolled Diabetes: No Urinary Catheter: No History of Decub. Ulcer: No History Surgical Site Infection Following: None - Disposition Have Diagnosis and Disposition been Completed?: Yes Diagnosis: Arthritis Disposition: HOME/ ROUTINE Disposition Time: 13:39 Patient Problems: Current Active Problems Problem Status Onset Arthritis Acute Condition: STABLE Discharge Instructions (ExitCare): Osteoarthritis Additional Instructions: Please follow up with your primary care physician in 2-3 days for further coordination of your care. You may take tylenol/advil over the counter as needed for foot pain. Please return to the Emergency department if you experience any new or worsening symptoms. Referrals: Thomas Carcamo MD [Primary Care Provider] - Follow up with primary Forms: [employer] ([place]an)
[2017-11-23 12:54] LABS: BASO # 0.02 K/mm3 (0.0-2.0); BASO % 0.5 % (0.0-3.0); EOS # 0.1 (0.0-0.7); EOS % 3.2 % (1.5-5.0); GRAN # 2.37 (1.4-6.5); GRAN % 53.8 % (50.0-68.0); HEMOGLOBIN 12.5 g/dL (12.0-16.0); LYMPH # 1.6 (1.2-3.4); LYMPH % 35.9 % (22.0-35.0); MEAN CELL VOLUME 86.2 fl (80.0-105.0); MEAN CORPUSCULAR HEMOGLOBIN 29.3 pg (25.0-35.0); MEAN CORPUSCULAR HGB CONC 34.1 g/dl (31.0-37.0); MEAN PLATELET VOLUME 10.1 fl (7.0-11.0); MONO # 0.3 (0.1-0.6); MONO % 6.6 % (1.0-6.0); RBC 4.26 10^6/uL (3.5-6.1); RED CELL DISTRIBUTION WIDTH 12.6 % (11.5-14.5); WHITE BLOOD COUNT 4.4 10^3/ul (4.5-11.0)
[2017-11-23 13:06] LABS: ALB/GLOB RATIO 1.3 (1.1-1.8); ALBUMIN 4.5 g/dL (3.0-4.8); ALT/SGPT 34 U/L (7-56); AST/SGOT 42 U/L (14-36); BLOOD UREA NITROGEN 17 mg/dL (7-21); CALCIUM 9.3 mg/dL (8.4-10.5); GFR NON-AFRICAN AMERICAN > 60
--- NOTE | 2017-11-23 13:07 | US ---
PROCEDURE: Right lower extremity venous US HISTORY: Leg pain and swelling. Evaluate for DVT. PHYSICIAN(S): Walter Hoover M.D. TECHNIQUE: Duplex sonography and color-flow Doppler with graded compression were used to evaluate the deep venous system of the right lower extremity. FINDINGS: The visualized deep venous system of the right lower extremity is sonographically normal and compressible. Normal waveforms and augmentation are seen. There is no sonographic evidence for deep venous thrombosis in the visualized segments of the right lower extremity. IMPRESSION: 1. No sonographic evidence for deep venous thrombosis in the visualized segments of the right lower extremity.
[2017-11-23 13:17] LABS: TROPONIN I < 0.01 ng/mL
--- NOTE | 2017-11-23 13:23 | RAD ---
HISTORY: chest pain COMPARISON: 08/22/2017 FINDINGS: LUNGS: No active pulmonary disease. PLEURA: No significant pleural effusion identified, no pneumothorax apparent. CARDIOVASCULAR: Mild cardiomegaly OSSEOUS STRUCTURES: No significant abnormalities. VISUALIZED UPPER ABDOMEN: Normal. OTHER FINDINGS: None. IMPRESSION: No active disease.
--- NOTE | 2017-11-23 13:36 | RAD ---
PROCEDURE: Right Foot Radiographs. HISTORY: foot pain COMPARISON: None. FINDINGS: BONES: Normal. No fracture. JOINTS: Mild degenerative changes are seen in the 1st MTP joint. The foot is otherwise unremarkable SOFT TISSUES: Normal. OTHER FINDINGS: None. IMPRESSION: Mild degenerative changes are seen in the 1st MTP joint. The foot is otherwise unremarkable
--- NOTE | 2017-11-23 14:58 | CARD ---
APPROVED REPORT EKG Measurement Heart [id number] <Conclusion> Normal sinus rhythm RSR' or QR pattern in V1 suggests right ventricular conduction delay Nonspecific T wave abnormality Abnormal ECG
[2017-11-23 15:18] VITALS: RESP 17
[2017-11-23 15:19] VITALS: BP 165/87; PULSE 70; O2SAT 100
== END 2017-11-23 15:18 | disposition home or self-care (01) ==
LOC: ED 10:52
DX: M19.90 Unspecified osteoarthritis, unspecified site (principal); E78.5 Hyperlipidemia, unspecified; K21.9 Gastro-esophageal reflux disease without esophagitis

== ENCOUNTER 2018-01-17 23:18 | Emergency (ER) | payer MEDICARE, BC ==
[2018-01-17 23:49] VITALS: BMI 23.8
[2018-01-17 23:52] VITALS: TEMP 97.9
--- NOTE | 2018-01-18 00:01 | ED PDOC ---
Arrival/HPI - General Chief Complaint: High Blood Pressure Time Seen by Provider: 01/17/18 23:34 Historian: Patient - History of Present Illness Narrative History of Present Illness (Text): 01/17/18 23:56 73yo female with past medical history of GERD, hypercholestrolemia and meningioma (s/p polypectomy 1998) present with complaint of occipital headache and warm felling. States she checked her BP when this symptoms started and it was 151/84. Notes that she repeated BP one hour after taking Tylenol and it was still 151/81. Notes persistent headache with the generalized warmness. States she had similar symptoms when she was diagnosed with meningeeioma in 1998. She denies focal weakness, slurred speech, rash, dizziness, visual changes, nausea, vomiting, abdominal pain, any other complaint. Past Medical History - Provider Review Nursing Documentation Reviewed: Yes - Infectious Disease Hx of Infectious Diseases: None - Tetanus Immunization Tetanus Immunization: Unknown - Cardiac Hx Cardiac Disorders: No - Pulmonary Hx Respiratory Disorders: No - Neurological Hx Neurological Disorder: Yes Other/Comment: benign brain tumor - HEENT Hx HEENT Disorder: Yes - Renal Hx Renal Disorder: No - Endocrine/Metabolic Hx Endocrine Disorders: Yes Other/Comment: thyroid issue (unsure if hypo/hyper) - Hematological/Oncological Hx Blood Disorders: Yes Hx Cancer: Yes (Brain) - Integumentary Hx Dermatological Disorder: No - Musculoskeletal/Rheumatological Hx Musculoskeletal Disorders: Yes Hx Gout: Yes - Gastrointestinal Hx Gastrointestinal Disorders: Yes Hx Gastroesophageal Reflux: Yes - Genitourinary/Gynecological Hx Genitourinary Disorders: No Other/Comment: R breast tumor - benign - Psychiatric Hx Psychophysiologic Disorder: No Hx Emotional Abuse: No Hx Physical Abuse: No Hx Substance Use: No - Surgical History Hx Cholecystectomy: Yes Other/Comment: L breast biopsy. R breast clip - Anesthesia Hx Anesthesia Reactions: No Hx Malignant Hyperthermia: No - Suicidal Assessment Feels Threatened In Home Enviroment: No Family/Social History - Physician Review Nursing Documentation Reviewed: Yes Family/Social History: Unknown Family HX Smoking Status: Never Smoked Hx Alcohol Use: No Hx Substance Use: No Allergies/Home Meds Allergies/Adverse Reactions: Allergies Penicillins Allergy (Verified 11/23/17 11:10) RASH Home Medications: Home Meds Medication Instructions Recorded Confirmed Atorvastatin [Lipitor] 10 mg PO DIN 02/11/18 07/09/18 Famotidine [Pepcid] 40 mg PO DAILY 08/22/17 01/17/18 Review of Systems - Physician Review All systems were reviewed & negative as marked: Yes - Review of Systems Constitutional: Normal Eyes: Normal ENT: Normal Respiratory: Normal Cardiovascular: Normal Gastrointestinal: Normal Genitourinary Female: Normal Musculoskeletal: Normal Skin: Normal Neurological: Headache. absent: Dizziness, Focal Weakness, Gait Changes, Speech Changes, Facial Droop Endocrine: Normal Hemo/Lymphatic: Normal Psychiatric: Normal Physical Exam Vital Signs Reviewed: Yes Vital Signs Temp Pulse Resp BP Pulse Ox 01/17/18 23:50 97.9 F 65 19 131/76 100 Temperature: Afebrile Blood Pressure: Normal Pulse: Regular Respiratory Rate: Normal Appearance: Positive for: Well-Appearing, Non-Toxic, Comfortable Pain Distress: None Mental Status: Positive for: Alert and Oriented X 3 - Systems Exam Head: Present: Atraumatic, Normocephalic Pupils: Present: PERRL Extroacular Muscles: Present: EOMI Conjunctiva: Present: Normal Mouth: Present: Moist Mucous Membranes Neck: Present: Normal Range of Motion Respiratory/Chest: Present: Clear to Auscultation, Good Air Exchange. No: Respiratory Distress, Accessory Muscle Use Cardiovascular: Present: Regular Rate and Rhythm, Normal S1, S2. No: Murmurs Abdomen: No: Tenderness, Distention, Peritoneal Signs Back: Present: Normal Inspection Upper Extremity: Present: Normal Inspection. No: Cyanosis, Edema Lower Extremity: Present: Normal Inspection. No: Edema Neurological: Present: GCS=15, CN II-XII Intact, Speech Normal, Motor Func Grossly Intact, Normal Sensory Function, Normal Cerebellar Funct, Gait Normal, Memory Normal, Other (No focal neurological deficit) Skin: Present: Warm, Dry, Normal Color. No: Rashes Psychiatric: Present: Alert, Oriented x 3, Normal Insight, Normal Concentration Medical Decision Making ED Course and Treatment: 01/18/18 01:37 PT in emergency department for stated history. She had no meningeal signs. She was afebrile and had no focal neurological deficit. she reported persistent occipital headache on arrival. Lab was ordered and reviewed and was unremarkable EKG Sinus marie at 51bpm @51bpm Head CT negative On re evaluation she noted that her pain improved. She took Tylenol ANIMATION ARTIST. Result was DW the pt and she was DC home. Advised to continue with Tylenol every 6hrs as needed. Referred to her PMd/Neuro. - Lab Interpretations Lab Results: 01/18/18 00:10 01/18/18 00:10 Lab Results 01/18/18 00:10: Sodium 144, Potassium 4.2, Chloride 106, Carbon Dioxide 27, Anion Gap 17, BUN 19, Creatinine 0.7, Est GFR ( Amer) > 60, Est GFR (Non- Af Amer) > 60, Random Glucose 115 H, Calcium 9.2, Total Bilirubin 0.7, AST 33, ALT 31, Alkaline Phosphatase 82, Troponin I < 0.01, Total Protein 7.9, Albumin 4.4, Globulin 3.4, Albumin/Globulin Ratio 1.3, Triglycerides 76, Cholesterol 129 L, LDL Cholesterol Direct 43, HDL Cholesterol 61 H 01/18/18 00:10: Urine Color Straw, Urine Appearance Clear, Urine pH 6.0, Ur Specific [place] <= 1.005, Urine Protein Negative, Urine Glucose (UA) Negative, Urine Ketones Negative, Urine Blood Trace-intact H, Urine Nitrate Negative, Urine Bilirubin Negative, Urine Urobilinogen 0.2, Ur Leukocyte Esterase Negative , Urine RBC 0 - 2, Urine WBC 0 - 2, Ur Epithelial Cells 0 - 2 01/18/18 00:10: PT 11.0, INR 0.97, APTT 37.7 H 01/18/18 00:10: WBC 4.9, RBC 4.09, Hgb 12.0, Hct 35.0 L, MCV 85.6, MCH 29.3, MCHC 34.3, RDW 12.6, Plt Count 261, MPV 10.2, Gran % 59.2, Lymph % (Auto) 32.5, [place] % (Auto) 5.9, Eos % (Auto) 1.8, Baso % (Auto) 0.6, Gran # 2.91, Lymph # ( Auto) 1.6, [place] # (Auto) 0.3, Eos # (Auto) 0.1, Baso # (Auto) 0.03 - RAD Interpretation Radiology Orders: 01/17/18 23:52 HEAD W/O CONTRAST [CT] Stat Disposition/Present on Arrival - Present on Arrival Any Indicators Present on Arrival: No History of DVT/PE: No History of Uncontrolled Diabetes: No Urinary Catheter: No History of Decub. Ulcer: No History Surgical Site Infection Following: None - Disposition Have Diagnosis and Disposition been Completed?: Yes Diagnosis: Headache Disposition: HOME/ ROUTINE Disposition Time: 01:40 Patient Plan: Discharge Condition: STABLE Discharge Instructions (ExitCare): Headache, Adult Additional Instructions: Follow up with your doctor/Neurologist Return to emergency department for any new or worsening symptoms Referrals: Pradeep He MD [Staff Provider] - Follow up with primary Forms: [employer] ([place])
[2018-01-18 00:28] LABS: BASO # 0.03 K/mm3 (0.0-2.0); BASO % 0.6 % (0.0-3.0); EOS # 0.1 (0.0-0.7); EOS % 1.8 % (1.5-5.0); GRAN # 2.91 (1.4-6.5); GRAN % 59.2 % (50.0-68.0); LYMPH # 1.6 (1.2-3.4); LYMPH % 32.5 % (22.0-35.0); MEAN CELL VOLUME 85.6 fl (80.0-105.0); MEAN CORPUSCULAR HEMOGLOBIN 29.3 pg (25.0-35.0); MEAN CORPUSCULAR HGB CONC 34.3 g/dl (31.0-37.0); MEAN PLATELET VOLUME 10.2 fl (7.0-11.0); MONO # 0.3 (0.1-0.6); MONO % 5.9 % (1.0-6.0); RBC 4.09 10^6/uL (3.5-6.1); RED CELL DISTRIBUTION WIDTH 12.6 % (11.5-14.5); WHITE BLOOD COUNT 4.9 10^3/ul (4.5-11.0)
[2018-01-18 00:29] LABS: URINE BILIRUBIN NEGATIVE (NEGATIVE); URINE BLOOD TRACE-INTACT (NEGATIVE); URINE GLUCOSE (UA) NEGATIVE (NEGATIVE); URINE LEUKOCYTE ESTERASE NEGATIVE Leu/uL (NEGATIVE); URINE PROTEIN NEGATIVE mg/dL (<30 mg/dL); URINE UROBILINOGEN 0.2 E.U./dL (<1 E.U./dL)
[2018-01-18 00:32] LABS: URINE APPEARANCE CLEAR (CLEAR); URINE COLOR STRAW (YELLOW)
[2018-01-18 00:34] LABS: ALB/GLOB RATIO 1.3 (1.1-1.8); ALBUMIN 4.4 g/dL (3.0-4.8); ALT/SGPT 31 U/L (7-56); AST/SGOT 33 U/L (14-36); BLOOD UREA NITROGEN 19 mg/dL (7-21); CALCIUM 9.2 mg/dL (8.4-10.5); GFR AFRICAN-AMERICAN > 60; GFR NON-AFRICAN AMERICAN > 60; HDL CHOLESTEROL 61 mg/dL (29-60); INR 0.97 (0.93-1.08); PARTIAL THROMBOPLASTIN TIME 37.7 Seconds (25.1-36.5)
[2018-01-18 00:45] LABS: LDL CHOLESTEROL 43 mg/dL (0-129)
[2018-01-18 00:46] LABS: URINE EPITHELIAL CELLS 0 - 2 /hpf (0-5); URINE RBC 0 - 2 /hpf (0-2); URINE WBC 0 - 2 /hpf (0-6)
[2018-01-18 00:48] LABS: TROPONIN I < 0.01 ng/mL
[2018-01-18 01:56] VITALS: BP 107/62; PULSE 74; RESP 18; O2SAT 99
--- NOTE | 2018-01-18 09:05 | CT ---
Date of service: 01/18/2018 PROCEDURE: CT HEAD WITHOUT CONTRAST. HISTORY: headache COMPARISON: 08/22/2017 TECHNIQUE: Axial computed tomography images were obtained through the head/brain without intravenous contrast. Radiation dose: Total exam DLP = 714 mGy-cm. This CT exam was performed using one or more of the following dose reduction techniques: Automated exposure control, adjustment of the mA and/or kV according to patient size, and/or use of iterative reconstruction technique. FINDINGS: HEMORRHAGE: No intracranial hemorrhage. BRAIN: No mass effect or edema. No atrophy or chronic microvascular ischemic changes. VENTRICLES: Unremarkable. No hydrocephalus. CALVARIUM: Right occipital craniotomy PARANASAL SINUSES: Unremarkable as visualized. No significant inflammatory changes. MASTOID AIR CELLS: Unremarkable as visualized. No inflammatory changes. OTHER FINDINGS: The report concurs with the preliminary [facility] report IMPRESSION: No acute findings
--- NOTE | 2018-01-18 16:44 | CARD ---
APPROVED REPORT Date of service: 01/18/2018 EKG Measurement Heart [id number] <Conclusion> Sinus bradycardia Low voltage QRS Nonspecific T wave abnormality Abnormal ECG
== END 2018-01-18 01:49 | disposition home or self-care (01) ==
LOC: ED 23:18
DX: R51 Headache (principal)

== ENCOUNTER 2018-07-08 13:06 | Emergency (ER) | payer MEDICARE, OTHER ==
[2018-07-08 13:08] VITALS: BMI 23.8
[2018-07-08 13:33] VITALS: RESP 18
--- NOTE | 2018-07-08 14:13 | ED PDOC ---
Arrival/HPI - General Chief Complaint: ENT Problem Time Seen by Provider: 07/08/18 13:49 Historian: Patient - History of Present Illness Narrative History of Present Illness (Text): 07/08/18 14:08 73 y/o F, with past medical history of costochondritis, chronic gastritis, meningioma s/p surgery, carpal tunnel syndrome, s/p cholecystectomy, and RA, presents to the ED for evaluation right sided facial tingling sensation for last few days. Patient states onset of symptoms few days ago when water went into her left ear while showering. Patient states pressure to bilateral ear since then and has been experiencing a "popping" sensation with movement of her jaw. Patient denies any discharge from the ears but informs mild discomfort. Patient denies any history of sinusitis in the past. Patient denies any other associated somatic complaints. Patient denies any fevers, chills, headache, dizziness, chest pain, shortness of breath, dyspnea on exertion, cough, abdominal pain, nausea, vomiting, diarrhea, back pain, neck pain, vision changes, focal weakness or any other complaints. PMD: Dr. Carcamo Time/Duration: < week Symptom Onset: Gradual Symptom Course: Unchanged Activities at Onset: Light Context: Home Past Medical History - Provider Review Nursing Documentation Reviewed: Yes - Infectious Disease Hx of Infectious Diseases: None - Tetanus Immunization Tetanus Immunization: Unknown - Cardiac Hx Cardiac Disorders: No - Pulmonary Hx Respiratory Disorders: No - Neurological Hx Neurological Disorder: Yes Other/Comment: benign brain tumor - HEENT Hx HEENT Disorder: Yes - Renal Hx Renal Disorder: No - Endocrine/Metabolic Hx Endocrine Disorders: Yes Other/Comment: thyroid issue (unsure if hypo/hyper) - Hematological/Oncological Hx Blood Disorders: Yes Hx Cancer: Yes (Brain) - Integumentary Hx Dermatological Disorder: No - Musculoskeletal/Rheumatological Hx Musculoskeletal Disorders: Yes Hx Gout: Yes - Gastrointestinal Hx Gastrointestinal Disorders: Yes Hx Gastroesophageal Reflux: Yes - Genitourinary/Gynecological Hx Genitourinary Disorders: No Other/Comment: R breast tumor - benign - Psychiatric Hx Psychophysiologic Disorder: No Hx Emotional Abuse: No Hx Physical Abuse: No Hx Substance Use: No - Surgical History Hx Cholecystectomy: Yes Other/Comment: L breast biopsy. R breast clip - Anesthesia Hx Anesthesia: Yes Hx Anesthesia Reactions: No Hx Malignant Hyperthermia: No - Suicidal Assessment Feels Threatened In Home Enviroment: No Family/Social History - Physician Review Nursing Documentation Reviewed: Yes Family/Social History: Unknown Family HX Smoking Status: Never Smoked Hx Alcohol Use: No Hx Substance Use: No Allergies/Home Meds Allergies/Adverse Reactions: Allergies Penicillins Allergy (Verified 11/23/17 11:10) RASH Home Medications: Home Meds Medication Instructions Recorded Confirmed Atorvastatin [Lipitor] 10 mg PO DIN 08/22/17 01/17/18 Famotidine [Pepcid] 40 mg PO DAILY 08/22/17 01/17/18 Review of Systems - Physician Review All systems were reviewed & negative as marked: Yes - Review of Systems Constitutional: absent: Fevers ENT: Other (bilateral ear discomfort. right sided facial tingling.) Respiratory: absent: SOB Cardiovascular: absent: Chest Pain, MANUEL Gastrointestinal: absent: Abdominal Pain, Diarrhea, Nausea, Vomiting Genitourinary Female: absent: Dysuria, Urine Output Changes Musculoskeletal: absent: Back Pain, Neck Pain Skin: absent: Rash Neurological: absent: Headache, Dizziness Physical Exam Vital Signs Reviewed: Yes Vital Signs Temp Pulse Resp BP Pulse Ox 07/08/18 13:08 98.5 F 54 L 18 128/76 97 Temperature: Afebrile Blood Pressure: Normal Pulse: Bradycardic Respiratory Rate: Normal Appearance: Positive for: Well-Appearing, Non-Toxic, Comfortable Pain Distress: None Mental Status: Positive for: Alert and Oriented X 3 - Systems Exam Head: Present: Atraumatic, Normocephalic Pupils: Present: PERRL Extroacular Muscles: Present: EOMI Conjunctiva: Present: Normal Neck: Present: Normal Range of Motion Respiratory/Chest: Present: Clear to Auscultation, Good Air Exchange. No: Respiratory Distress, Accessory Muscle Use Cardiovascular: Present: Regular Rate and Rhythm, Normal S1, S2. No: Murmurs Abdomen: No: Tenderness, Distention, Peritoneal Signs Upper Extremity: Present: Normal Inspection. No: Cyanosis, Edema Lower Extremity: Present: Normal Inspection. No: Edema Neurological: Present: GCS=15, CN II-XII Intact, Speech Normal, Other (Difficulty with finger to nose test with right hand. ) Skin: Present: Warm, Dry, Normal Color. No: Rashes Psychiatric: Present: Alert, Oriented x 3, Normal Insight, Normal Concentration Medical Decision Making ED Course and Treatment: 07/08/18 14:10 Impression: 73 year old female presents to the ED for evaluation of bilateral ear discomfort and right sided facial tingling. Differential Diagnosis included but are not limited to: -- Trigeminal neuralgia -- Sinusitis -- Meniere's disease Plan: -- CT of Head -- Tegretol -- Reassess and disposition Prior Visits: Notes and results from previous visits were reviewed. Progress Notes: 07/08/18 15:22 CTH reviewed with no acute changes - RAD Interpretation Narrative RAD Interpretations (Text): 07/08/18 15:37 CT Head reviewed by radiologist, shows: FINDINGS: HEMORRHAGE: No intracranial hemorrhage. BRAIN: No mass effect or edema. No atrophy or chronic microvascular ischemic changes. VENTRICLES: Unremarkable. No hydrocephalus. CALVARIUM: There is a craniotomy defect in the right occipital bone. PARANASAL SINUSES: Unremarkable as visualized. No significant inflammatory changes. MASTOID AIR CELLS: Unremarkable as visualized. No inflammatory changes. OTHER FINDINGS: None. IMPRESSION: No acute findings - Scribe Statement The provider has reviewed the documentation as recorded by the Scribe Alexa Severino. All medical record entries made by the Scribe were at my direction and personally dictated by me. I have reviewed the chart and agree that the record accurately reflects my personal performance of the history, physical exam, medical decision making, and the department course for this patient. I have also personally directed, reviewed, and agree with the discharge instructions and disposition. Disposition/Present on Arrival - Present on Arrival Any Indicators Present on Arrival: No History of DVT/PE: No History of Uncontrolled Diabetes: No Urinary Catheter: No History of Decub. Ulcer: No History Surgical Site Infection Following: None - Disposition Have Diagnosis and Disposition been Completed?: Yes Diagnosis: Paresthesias, Trigeminal neuralgia of left side of face Disposition: HOME/ ROUTINE Disposition Time: 15:25 Patient Plan: Discharge Patient Problems: Current Active Problems Problem Status Onset Paresthesias Acute Trigeminal neuralgia of left side of face Acute Condition: STABLE Discharge Instructions (ExitCare): Trigeminal Neuralgia, Paresthesias (DC) Print Language: GUATEMAL[place] Additional Instructions: All medical record entries made by the Scribe were at my direction and pers onally dictated by me. I have reviewed the chart and agree that the record accurately reflects my personal performance of the history, physical exam, medical decision making, and the department course for this patient. I have also personally directed, reviewed, and agree with the discharge instructions and disposition. Prescriptions: Carbamazepine 200 mg PO DAILY 5 Days #5 tab Referrals: Shaquille Parsons MD [Staff Provider] - Follow up with primary Forms: [employer] (Amharic)
--- NOTE | 2018-07-08 15:17 | CT ---
Date of service: 07/08/2018 PROCEDURE: CT HEAD WITHOUT CONTRAST. HISTORY: h/o of cerebellar lesion w/ facial paresthesias COMPARISON: 01/18/2018 TECHNIQUE: Axial computed tomography images were obtained through the head/brain without intravenous contrast. Radiation dose: Total exam DLP = 885.69 mGy-cm. This CT exam was performed using one or more of the following dose reduction techniques: Automated exposure control, adjustment of the mA and/or kV according to patient size, and/or use of iterative reconstruction technique. FINDINGS: HEMORRHAGE: No intracranial hemorrhage. BRAIN: No mass effect or edema. No atrophy or chronic microvascular ischemic changes. VENTRICLES: Unremarkable. No hydrocephalus. CALVARIUM: There is a craniotomy defect in the right occipital bone. PARANASAL SINUSES: Unremarkable as visualized. No significant inflammatory changes. MASTOID AIR CELLS: Unremarkable as visualized. No inflammatory changes. OTHER FINDINGS: None. IMPRESSION: No acute findings
[2018-07-08 16:15] VITALS: BP 124/72; PULSE 70; TEMP 98; O2SAT 100
== END 2018-07-08 16:16 | disposition home or self-care (01) ==
LOC: ED 13:06
DX: G50.0 Trigeminal neuralgia (principal); R20.2 Paresthesia of skin

== ENCOUNTER 2018-10-07 13:16 | Outpatient (CLI) | payer MEDICARE, BC | END 2018-10-07 13:17 | disposition home or self-care (01) | LOC: RAD 13:16 ==